=== PATIENT | male | born 1935 | race Caucasian/White ===

== ENCOUNTER → 2017-07-05 | Outpatient (REF) | payer MEDICARE, OTHER | LOC: M LAB REF 13:20 | PROVIDERS: ATTEND Internal Medicine Nephrology | DX: E78.2 Mixed hyperlipidemia (principal) ==

== ENCOUNTER → 2018-09-19 | Outpatient (REF) | payer MEDICARE, OTHER ==
[2018-09-19 13:57] LABS: CHOLESTEROL LEVEL 95 MG/DL (<200); HDL CHOLESTEROL 38 MG/DL (>40); LDL CHOLESTEROL 34 MG/DL (<100); NON-HDL-C 57 MG/DL; TRIGLYCERIDES LEVEL 116 MG/DL (<150)
== END ==
LOC: M LAB REF 13:09
DX: E78.2 Mixed hyperlipidemia (principal)
CPT/HCPCS: 80061

== ENCOUNTER → 2019-10-02 | Outpatient (REF) | payer MEDICARE, OTHER ==
[2019-10-02 14:03] LABS: CHOLESTEROL RISK RATIO 1.714 (<5)
== END ==
LOC: M LAB REF 12:53
PROVIDERS: ATTEND Internal Medicine Nephrology
DX: E78.2 Mixed hyperlipidemia (principal)

== ENCOUNTER → 2019-10-03 | Outpatient (REF) | payer MEDICARE, OTHER | LOC: M LAB REF 12:08 | PROVIDERS: ATTEND Internal Medicine Nephrology | DX: R19.7 Diarrhea, unspecified (principal) ==

== ENCOUNTER → 2020-06-14 | Outpatient (CLI) | payer MEDICARE, OTHER ==
[~2020-06-14] MED LIST: ALLO10TA PO; BACITAB PO; CARV25TA PO; E-Z-GAS II EFFERVESCENT PACKET (SODIUM BICARB./CITRIC ACID/SIMETHICONE) As Ordered ONE; E-Z-HD 98% w/w 340GM SUSP BTL As Ordered ONE; E-Z-PAQUE 96% w/w SUSP 176GM BTL As Ordered ONE; ECOT81TA5 PO; FAMO20TA PO; FERR325T82 PO; INDA125TA PO; LISI-538 PO; MAGN1CAP PO; MULT-90 PO; VITA-257 PO; VITA100T59 PO
--- NOTE | 2020-07-26 13:46 | REP ---
UPPER GI AIR CONTRAST AND SMALL BOWEL FOLLOW THROUGH: The procedure was performed under the direct supervision of Dr. Liriano. The images were reviewed with Dr. Liriano. FINDINGS: The clinical services manager film shows no organomegaly or pathological masses. The intestinal gas pattern is nonspecific. Liquid barium and gas-producing granules were given in the erect position as well as liquid barium in the prone oblique position in order to perform a double contrast upper GI examination. Additionally, liquid barium was given at the end of the examination in order to perform a small bowel follow through. The oral and pharyngeal stages of deglutition are unremarkable. Esophageal transport is prompt and efficient and there is no esophagitis, stricture, mucosal ring or hiatal hernia. There is gastroesophageal reflux demonstrated to the level of the kia. The stomach chambers are normally outlined. The rugal folds are smooth and regular. There is no gastritis, neoplasm or ulcer disease. The duodenal chambers are normally outlined. The mucosal folds are smooth and regular. There is no duodenitis, pancreatitis, peptic ulcer disease or neoplasm. There is a small duodenal tic in the distal portion of the duodenum. The visualized portion of the proximal small bowel appears normal in course and caliber. The barium column was followed through the small bowel to the level of the terminal ileum. Small bowel transit time is approximately 1 hour. During fluoroscopy, gentle palpation shows all loops are freely moveable and pliable. There are no fixed or angulated loops. The small bowel mucosal pattern is normal in course and caliber. There is no transition to suggest a partial small bowel obstruction. Spot filming of the terminal ileum shows a small ileal diverticulum. The terminal ileum is otherwise unremarkable. IMPRESSION: 1. There is gastroesophageal reflux demonstrated to the level of the kia. 2. There is a small distal duodenal diverticulum. 3. 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 2.4 minutes of fluoroscopy time was utilized for this procedure. [facility]
== END ==
LOC: M RAD 08:00
PROVIDERS: ATTEND Internal Medicine Gastroenterology
DX: K21.9 Gastro-esophageal reflux disease without esophagitis (principal); R19.7 Diarrhea, unspecified

== ENCOUNTER → 2020-06-21 | Outpatient (CLI) | payer MEDICARE, OTHER ==
[~2020-06-21] MED LIST changes: -E-Z-GAS II EFFERVESCENT PACKET (SODIUM BICARB./CITRIC ACID/SIMETHICONE) As Ordered ONE; -E-Z-HD 98% w/w 340GM SUSP BTL As Ordered ONE; -E-Z-PAQUE 96% w/w SUSP 176GM BTL As Ordered ONE; +LIQUID POLIBAR PLUS 105% w/v 1900ML BTL As Ordered ONE
--- NOTE | 2020-08-30 13:55 | REP ---
BARIUM ENEMA AIR CONTRAST The procedure was performed under the direct supervision of Dr. Corral. The images were reviewed with Dr. Corral. FINDINGS: The waist cutter film shows no organomegaly or pathological masses. The intestinal gas pattern is nonspecific. Liquid barium and air were instilled into the colon in a retrograde flow of the barium and air mixture. The exam is limited as the patient was unable to retain the contrast or the air. The colon is normal in position and contour. There is a 1 cm plaque-like flat polyp on the right side of the rectum. There is a 3 x 1.5 cm polypoid lesion in the rectal sigmoid colon. There are sigmoid diverticula identified. There is free flow of contrast to the cecum. There is reflux into the terminal ileum. IMPRESSION: * There is a 1 cm plaque-like/flat polyp on the right side of the rectum. * There is a 3 x 1.5 cm polypoid lesion in the rectosigmoid colon. * There is diverticulosis without evidence of diverticulitis. FLUOROSCOPY TIME: 1.3 minutes was utilized for this procedure. [facility]
== END ==
LOC: M RAD 07:15
PROVIDERS: ATTEND Internal Medicine Gastroenterology
DX: R19.7 Diarrhea, unspecified (principal); K63.5 Polyp of colon

== ENCOUNTER → 2020-07-11 | Outpatient (REF) | payer MEDICARE, OTHER ==
[~2020-07-11] MED LIST changes: -LIQUID POLIBAR PLUS 105% w/v 1900ML BTL As Ordered ONE
[2020-07-11 18:49] LABS: PERCENT SATURATION 20.2 % (19.7-50.0)
[2020-07-11 18:57] LABS: FOLATE 9.2 NG/ML
== END ==
LOC: M LAB REF 17:53
PROVIDERS: ATTEND Internal Medicine Nephrology
DX: D50.9 Iron deficiency anemia, unspecified (principal); D53.1 Other megaloblastic anemias, not elsewhere classified

== ENCOUNTER → 2020-08-23 | Outpatient (CLI) | payer MEDICARE, OTHER | LOC: M LABSMTC 13:33 | PROVIDERS: ATTEND Anesthesiology | DX: Z01.812 Encounter for preprocedural laboratory examination (principal); Z20.828 Contact with and (suspected) exposure to other viral communicable diseases | CPT/HCPCS: C9803; U0003 ==

== ENCOUNTER 2020-08-27 08:28 | Day surgery (SDC) | payer MEDICARE, OTHER ==
[~2020-08-27] VITALS: Ht 180.3 cm; Wt 68.0 kg
[~2020-08-27 08:28] MED LIST changes: +NS 1,000 ML IV ONE
[2020-08-27] MEDS ORDERED: LIDOCAINE 2% 100MG/5ML SDV (FOR ANES.) As Ordered ONE (09:55)
[2020-08-27] MEDS ORDERED: propofoL 200 MG/20 ML VIAL As Ordered ONE (09:55)
[2020-08-27] MEDS ORDERED: PHENYLephrine HCL 500 MCG/5 ML (100MCG/ML) SYRINGE (J2370) As Ordered ONE (10:38)
--- NOTE | 2020-08-27 11:03 | ROOR ---
Patient Name: Lamont Sarabia Procedure Date: 08/27/2020 10:18 AM Date of : 1935 Age: 84 Room: [facility] Gender: Male Note Status: Finalized Procedure: Colonoscopy Indications: Iron deficiency anemia, Abnormal barium enema Providers: Ankur Shaver MD Referring MD: Eladio Hung MD Requesting Provider: Medicines: Monitored Anesthesia Care Complications: No immediate complications. Procedure: Pre-Anesthesia Assessment: - Prior to the procedure, a History and Physical was performed, and patient medications and allergies were reviewed. The patient is competent. The risks and benefits of the procedure and the sedation options and risks were discussed with the patient. All questions were answered and informed consent was obtained. Patient identification and proposed procedure were verified by the physician, the nurse and the anesthesiologist in the procedure room. Mental Status Examination: alert and oriented. Airway Examination: normal oropharyngeal airway and neck mobility. Respiratory Examination: clear to auscultation. CV Examination: normal. Prophylactic Antibiotics: The patient does not require prophylactic antibiotics. Prior Anticoagulants: The patient has taken no previous anticoagulant or antiplatelet agents. ASA Grade Assessment: II - A patient with mild systemic disease. After reviewing the risks and benefits, the patient was deemed in satisfactory condition to undergo the procedure. The anesthesia plan was to use monitored anesthesia care (MAC). Immediately prior to administration of medications, the patient was re-assessed for adequacy to receive sedatives. The heart rate, respiratory rate, oxygen saturations, blood pressure, adequacy of pulmonary ventilation, and response to care were monitored throughout the procedure. The physical status of the patient was re-assessed after the procedure. The Colonoscope was introduced through the anus and advanced to the terminal ileum, with identification of the appendiceal orifice and IC valve. The colonoscopy was performed without difficulty. The patient tolerated the procedure well. The quality of the bowel preparation was good. The terminal ileum, ileocecal valve, appendiceal orifice, and rectum were photographed. Scope insertion time was 2 minutes. Scope withdrawal time was 9 minutes. The total duration of the procedure was 12 minutes. Findings: The perianal and digital rectal examinations were normal. The terminal ileum appeared normal. A single medium-sized localized angioectasia with stigmata of recent bleeding was found in the cecum. Coagulation for hemostasis using argon beam at 0.8 liters/minute and 20 rachel was successful. For hemostasis, one hemostatic clip was successfully placed. There was no bleeding at the end of the procedure. Multiple small and large-mouthed diverticula were found in the sigmoid colon. There was no evidence of diverticular bleeding. Non-bleeding external and internal hemorrhoids were found during retroflexion. The hemorrhoids were medium-sized. There is no endoscopic evidence of mass, polyps, stricture or ulcerations in the entire colon. Impression: - The examined portion of the ileum was normal. - A single recently bleeding colonic angioectasia. Treated with argon beam coagulation. Clip was placed. - Moderate diverticulosis in the sigmoid colon. There was no evidence of diverticular bleeding. - Non-bleeding external and internal hemorrhoids. - No specimens collected. Recommendation: - Patient has a contact number available for emergencies. The signs and symptoms of potential delayed complications were discussed with the patient. Return to normal activities tomorrow. Written discharge instructions were provided to the patient. - High fiber diet. - Continue present medications. - Await pathology results. - Repeat colonoscopy is not recommended due to current age (66 years or older) depending on clinical and functional status. - Telephone GI clinic if symptomatic. - Return to primary care physician. Ankur Shaver MD Ankur Shaver MD 08/27/2020 11:02:45 AM Electronically signed by Ankur Shaver MD Number of Addenda: 0 Note Initiated On: 08/27/2020 10:18 AM Estimated Blood Loss: Estimated blood loss was minimal.
[2020-08-27 11:27] VITALS: BP 131/63
== END 2020-08-27 11:32 | disposition home or self-care (01) ==
LOC: M OPP 08:28
PROVIDERS: ATTEND Internal Medicine Gastroenterology
DX: K55.21 Angiodysplasia of colon with hemorrhage (principal); D50.9 Iron deficiency anemia, unspecified; K57.30 Diverticulosis of large intestine without perforation or abscess without bleeding; K64.8 Other hemorrhoids; R93.3 Abnormal findings on diagnostic imaging of other parts of digestive tract; K21.9 Gastro-esophageal reflux disease without esophagitis; I10 Essential (primary) hypertension; R19.7 Diarrhea, unspecified; Z79.899 Other long term (current) drug therapy
CPT/HCPCS: 45382; J2370

== ENCOUNTER → 2020-10-01 | Outpatient (CLI) | payer MEDICARE, OTHER ==
[~2020-10-01] MED LIST changes: -NS 1,000 ML IV ONE
--- NOTE | 2020-10-01 09:32 | REP ---
INDICATION: GENERALIZED ABDOMIAL PAIN COMPARISON: None TECHNIQUE: Axial noncontrast images from the lung bases to the pubic symphysis with coronal and sagittal reformations. This CT examination was performed using the following dose reduction techniques: Automated exposure control, adjustment of mA and/or kv according to the patient's size, and use of iterative reconstruction technique. FINDINGS: There is a moderate to large left pleural effusion along with passive atelectasis at the lingula and left lower lobe. Severe ascites noted throughout the abdomen and pelvis. Liver appears mildly shrunken which may reflect cirrhosis. Spleen is grossly unremarkable and without splenomegaly. Pancreas, gallbladder, and bilateral adrenal glands appear normal. Kidneys demonstrate age-related symmetric atrophic changes, mild chronic perinephric stranding, and hypodensities likely representing simple and complex cysts. Renovascular calcifications are identified without evidence for hydroureteronephrosis or nephrolithiasis. The enteric system is incompletely evaluated due to surrounding ascites. However, there is no evidence for bowel obstruction or free air to suggest perforation. Extensive calcifications versus intraluminal barium concretions are noted within the central abdomen. Pelvis demonstrates normal bladder and prostatomegaly. Atherosclerotic changes to the aorta and vasculature noted without aortic aneurysm. Osseous structures demonstrate age-related osteopenia and degenerative changes without focal acute osseous abnormality. IMPRESSION: 1. Large left pleural effusion with lingular and left lower lobe passive atelectasis. 2. Severe ascites throughout the abdomen and pelvis. 3. Further nonacute abdominopelvic findings as described above. Further evaluation is somewhat limited due to ascites and lack of both intrinsic and IV/oral contrast. <Electronically signed by Naveen Valle > 10/01/20 [id number]
== END ==
LOC: M RAD 07:21
PROVIDERS: ATTEND Internal Medicine Nephrology
DX: R10.84 Generalized abdominal pain (principal); R19.7 Diarrhea, unspecified; J90 Pleural effusion, not elsewhere classified; R18.8 Other ascites

== ENCOUNTER → 2020-10-28 | Outpatient (REF) | payer MEDICARE, OTHER ==
[2020-10-28 12:14] LABS: INR 1.08; PROTHROMBIN TIME 14.2 SECONDS (12.5-14.3)
[2020-10-28 12:15] LABS: PARTIAL THROMBOPLASTIN TIME 34.9 SECONDS (24.2-38.5)
== END ==
LOC: M LABDRAWC 11:06
PROVIDERS: ATTEND Internal Medicine Nephrology
DX: N18.4 Chronic kidney disease, stage 4 (severe) (principal); K74.69 Other cirrhosis of liver

== ENCOUNTER → 2020-10-29 | Outpatient (CLI) | payer MEDICARE, OTHER ==
[~2020-10-29] MED LIST changes: +SODIUM BICARBONATE 8.4% INJ 50MEQ 50 ML VIAL As Ordered ONE
[2020-10-29 14:02] VITALS: BP 126/58
[2020-10-29 14:10] LABS: APPEARANCE, BODY FLUID CLOUDY (CLEAR); SOURCE, BODY FLUID ASCITES
[2020-10-29 14:25] LABS: SOURCE, BODY FLUID TOT PROTEIN ASCITES; TOTAL PROTEIN, BODY FLUID 2.7 G/DL (NOT ESTABLISHED)
--- NOTE | 2020-10-29 16:52 | REP ---
INDICATION: SEVERE ASCITES The patient has a history of ascites COMPARISON: None. TECHNIQUE: The procedure was performed by DAVID Padilla, under the direct supervision of Dr. Corral The risks and benefits of the procedure were explained to the patient and an informed consent was obtained both verbally and written. Directly prior to the start of the procedure a formal time-out was completed in the procedure room. The largest pocket of fluid was localized in the right flank using ultrasound guidance. The skin was prepped and draped in a sterile fashion. Ten ML of buffered lidocaine was used as a local anesthetic. An 8-Bengali multi side-hole catheter was inserted using trocar technique. 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 The patient tolerated the procedure well and there were no immediate complications. After the appropriate amount of monitored convalescence, the patient was discharged from the department. 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 <Electronically signed by Mariel Medina > 10/29/20 1607 <Electronically signed by Edmar Corral > 10/29/20 [id number]
== END ==
LOC: M IRPRO 12:35
PROVIDERS: ATTEND Internal Medicine Nephrology
DX: R18.8 Other ascites (principal); Z79.82 Long term (current) use of aspirin; Z79.899 Other long term (current) drug therapy

== ENCOUNTER 2021-01-30 10:11 | Inpatient (IN) | payer MEDICARE, OTHER ==
[~2021-01-30] VITALS: Ht 180.3 cm; Wt 63.6 kg
[~2021-01-30 10:11] MED LIST changes: -LISI-538 PO; +LISI20TA33 PO; -SODIUM BICARBONATE 8.4% INJ 50MEQ 50 ML VIAL As Ordered ONE
[2021-01-30 11:35] LABS: BASO # 0.1 10^3/uL (0.0-0.2); BASO % 0.5 % (0.0-1.0); EOS # 0.1 10^3/uL (0.0-0.5); EOS % 0.5 % (0.0-3.0); HEMOGLOBIN 7.4 g/dl (13.5-17.5); LYMPH # 0.3 10^3/uL (1.5-5.0); LYMPH % 2.6 % (24.0-44.0); MEAN CORPUSCULAR HEMOGLOBIN 29.1 pg (27.0-33.0); MEAN CORPUSCULAR HGB CONC 32.2 g/dl (32.0-36.5); MEAN CORPUSCULAR VOLUME 90.6 fl (80.0-96.0); MONO # 1.2 10^3/uL (0.0-0.8); MONO % 11.4 % (2.0-8.0); NEUTROPHILS # 9.2 10^3/uL (1.5-8.5); NEUTROPHILS % 84.5 % (36.0-66.0); PLATELET COUNT, AUTOMATED 283 10^3/uL (150-450); RED BLOOD COUNT 2.54 10^6/uL (4.30-6.10); WHITE BLOOD COUNT 10.9 10^3/uL (4.0-10.0)
--- NOTE | 2021-01-30 11:51 | REP ---
INDICATION: Altered Mental Status. COMPARISON: None. TECHNIQUE: Helical scanning is acquired. 5 mm axial images were reformatted. Coronal MPR images were generated. FINDINGS: Preliminary digital didactic instructor radiograph is unremarkable. The bony calvarium is intact. There is moderate diffuse vascular calcification in the distal internal carotid arteries bilaterally. No intraorbital abnormality is seen. The visualized paranasal sinuses are clear. No bony calvarial lesion is seen. On soft tissue window settings, there is moderate generalized volume loss. Concordant ventricular enlargement is seen. There is no evidence of intracranial hemorrhage. No infarct is apparent. No mass, extra-axial fluid collection, or midline shift is seen. IMPRESSION: Moderate generalized volume loss. Vascular calcification. No acute intracranial abnormality. <Electronically signed by Slava Liriano > 01/30/21 [id number]
--- NOTE | 2021-01-30 11:53 | REP ---
INDICATION: Altered Mental Status. COMPARISON: No comparison chest x-ray. TECHNIQUE: Portable upright AP chest radiograph. FINDINGS: There is evidence of left pleural effusion. There is some volume loss overall overall in the left hemithorax suggesting some atelectatic change in the left lower lobe. Skin folds are seen parallel to the chest. These mimic pneumothorax. Concurrently performed chest CT study from this date does not show evidence of a pneumothorax. The right lung is clear. Heart is not enlarged. No bony abnormality is seen.. IMPRESSION: Evidence of left pleural effusion with atelectasis left lung. Skin folds along the left chest wall mimic pneumothorax.. <Electronically signed by Slava Liriano > 01/30/21 [id number]
--- NOTE | 2021-01-30 11:53 | REP ---
INDICATION: Altered Mental Status. COMPARISON: None. TECHNIQUE: CT chest performed without the use of intravenous contrast. Sagittal and coronal reconstruction images are performed. FINDINGS: Lungs: Right lung clear, no infiltrate or nodule. Left lung demonstrates mild dependent atelectatic change. Mediastinum: No gross adenopathy. Lesly: No gross adenopathy. Axilla: No gross adenopathy. Pleura: There is a large left pleural effusion.. Heart: Not enlarged. Small amount of pericardial fluid is seen anteriorly and inferiorly. Thoracic aorta: No aneurysm. Visualized osseous structures: There are mild degenerative changes of the spine. IMPRESSION: Large left pleural effusion with dependent atelectatic changes left lung. Small amount of pericardial fluid anteriorly and inferiorly. <Electronically signed by Edmar Corral > 01/30/21 [id number]
[2021-01-30 12:05] LABS: OSMOLALITY SERUM 278 MOSM/KG (280-301)
[2021-01-30 12:14] LABS: ALBUMIN 2.1 GM/DL (3.2-5.2); ALT/SGPT 10 U/L (12-78); BILIRUBIN,DIRECT 0.1 MG/DL (0.0-0.2); BILIRUBIN,TOTAL 0.4 MG/DL (0.2-1.0); BLOOD UREA NITROGEN 42 MG/DL (7-18); CALCIUM LEVEL 8.2 MG/DL (8.8-10.2); CARBON DIOXIDE LEVEL 26 MEQ/L (21-32); CHLORIDE LEVEL 95 MEQ/L (98-107); CK-MB VALUE MASS 8.1 NG/ML (<3.6); CPK CREATINE PHOSPHOKINASE 392 U/L (39-308); CREATININE FOR GFR 1.85 MG/DL (0.70-1.30); GLOMERULAR FILTRATION RATE 37.1 (>35); GLUCOSE, FASTING 68 MG/DL (70-100); MB/CK RELATIVE INDEX 2.07 (< OR =4); POTASSIUM SERUM 4.7 MEQ/L (3.5-5.1); SODIUM LEVEL 126 MEQ/L (136-145); TOTAL PROTEIN 6.7 GM/DL (6.4-8.2); TROPONIN I < 0.02 NG/ML (< 0.10)
--- NOTE | 2021-01-30 12:42 | REP ---
INDICATION: Altered Mental Status. COMPARISON: Abdomen/pelvis CT dated 10/01/2020. TECHNIQUE: The study is performed without IV or bowel contrast. FINDINGS: Within the visualized lower lung mendoza there is a large left pleural effusion. This is similar to the comparison study. There is a large volume of ascites throughout the abdomen and pelvis, similar to the prior study. The hepatic margin appears mildly nodular suggestive of cirrhosis. This should be correlated clinically. The liver appears to be diffusely decreased in size. This is unchanged. The gallbladder and pancreas are unchanged. Spleen appears normal size and unchanged. The adrenals are unremarkable. The unenhanced kidneys demonstrate no hydronephrosis or calculus. There are a few renal cortical cysts bilaterally. These are not significantly changed. There is mild bilateral perinephric stranding, not unusual for patient age. The abdominal aorta is unremarkable except for calcified atheroma occasional. There are a few nonenlarged periaortic nodes. There is no bowel distention or obstruction. There are numerous mesenteric calcifications a similar to the prior study. This may be sequela of prior mesenteric inflammation. Pelvis: Large volume of ascites throughout the pelvis. The pelvic bowel loops are unremarkable. The bladder is unremarkable. And IMPRESSION: Large volume ascites throughout the abdomen and pelvis as previously. Stable a mesenteric calcifications as previously, possibly from previous mesenteric inflammation. The liver is small size and the margin is mildly nodular compatible with cirrhosis. Large left pleural effusion. No bowel distention or obstruction. No hydronephrosis or renal calculus. There are a few small renal cysts, unchanged. <Electronically signed by Edmar Alba > 01/30/21 [id number]
[2021-01-30] MEDS ORDERED: ASCO500T PO (12:51)
[2021-01-30] MEDS ORDERED: MAGN400T3 PO (12:51)
[2021-01-30] MEDS ORDERED: FURO20TA2 PO (12:51)
[2021-01-30] MEDS ORDERED: FIBE625T PO (12:51)
[2021-01-30] MEDS ORDERED: PRES10CA2 PO (12:51)
[2021-01-30] MEDS ORDERED: FERR32TA PO (12:51)
[2021-01-30 14:56] LABS: SPEC. GRAVITY BODY FLUIDS 1.022 (NOT ESTABLISHED)
[2021-01-30 15:01] LABS: APPEARANCE, BODY FLUID CLOUDY (CLEAR); PERITONEAL FL COLOR PALE YELLOW (COLORLESS); SOURCE, BODY FLUID PERITONEAL
[2021-01-30 15:21] LABS: SOURCE, BODY FLUID ALBUMIN PERITONEAL; SOURCE, BODY FLUID GLUCOSE PERITONEAL; SOURCE, BODY FLUID TOT PROTEIN PERITONEAL; TOTAL PROTEIN, BODY FLUID 3.2 G/DL (NOT ESTABLISHED)
[2021-01-30 15:25] LABS: FERRITIN 516 NG/ML (26-388); IRON (FE) 17 UG/DL (65-175); PERCENT SATURATION 13.5 % (19.7-50.0); TOTAL IRON BINDING CAPACITY 126 UG/DL (250-450)
[2021-01-30 15:40] LABS: RSV AMPLIFICATION NEGATIVE (NEGATIVE)
[2021-01-30 15:45] VITALS: BP 119/59
[2021-01-30] MEDS ORDERED: GLUCOSE 4GM CHEW TABLET PO PRN (17:35)
[2021-01-30] MEDS ORDERED: GLUCAGON INJ 1MG VIAL SC PRN (17:35)
[2021-01-30] MEDS ORDERED: DEXTROSE 50% 50 ML SYRINGE IV PRN (17:35)
[2021-01-30 18:13] LABS: CREATININE,RANDOM URINE 54.7 MG/DL
[2021-01-30 18:18] LABS: INR 1.18; PROTHROMBIN TIME 15.3 SECONDS (12.5-14.3)
[2021-01-30 18:19] LABS: PARTIAL THROMBOPLASTIN TIME 33.4 SECONDS (24.2-38.5)
[2021-01-30 18:23] LABS: CALCIUM LEVEL 8.1 MG/DL (8.8-10.2); CREATININE FOR GFR 1.88 MG/DL (0.70-1.30); GLOMERULAR FILTRATION RATE 36.4 (>35); POTASSIUM SERUM 4.6 MEQ/L (3.5-5.1)
[2021-01-30] MEDS: D5W/0.45% SODIUM CHLORIDE 1,000 ML IV SCH (18:45)
--- NOTE | 2021-01-30 18:53 | REP ---
INDICATION: Paracentesis - diagnostic and therapeutic. COMPARISON: None. TECHNIQUE: The procedure was performed under the direct supervision of Dr. Corral. The risks and benefits of the procedure were explained to the patient and informed consent was obtained. The procedure was performed by Dr. Palma under my personal guidance. The largest pocket of fluid was localized in the left flank using ultrasound guidance. The skin was prepped and draped in a sterile fashion. 1% lidocaine was used as a local anesthetic. An 8-Ghanaian multi side-hole catheter was inserted using trocar technique.6250 cc of cloudy yellow fluid was withdrawn with a sample sent to the lab for analysis The patient tolerated the procedure well and there were no immediate complications. After the appropriate amount of monitored convalescence, the patient was discharged from the department. FINDINGS: None IMPRESSION: Ultrasound-guided paracentesis [id number] cc of cloudy fluid. <Electronically signed by Richy Baez > 01/30/21 [id number] <Electronically signed by Edmar Corral > 01/30/21 [id number]
[2021-01-30 19:43] LABS: HEMATOCRIT 26.3 % (42.0-52.0); HEMOGLOBIN 8.5 g/dl (13.5-17.5); MEAN CORPUSCULAR HEMOGLOBIN 28.7 pg (27.0-33.0); MEAN CORPUSCULAR HGB CONC 32.3 g/dl (32.0-36.5); MEAN CORPUSCULAR VOLUME 88.9 fl (80.0-96.0); PLATELET COUNT, AUTOMATED 257 10^3/uL (150-450); RED BLOOD COUNT 2.96 10^6/uL (4.30-6.10); WHITE BLOOD COUNT 11.2 10^3/uL (4.0-10.0)
--- NOTE | 2021-01-30 20:27 | HPEPDOC ---
General Date of Admission Jan 30, 2021 at 16:50 Date of Service: Jan 30, 2021 Chief Complaint The patient is a 85-year-old male admitted with a reason for visit of poor oral intake and weakness Source: Patient, Family History of Present Illness Mr. Sarabia is an 85 year old male with cirrhosis and CKD stage 4 who presents with weakness. The past few weeks, patient has had a poor appetite, but has acutely worsened in the past few days. reports that he would eat cornflakes and fruit for breakfast, but would not eat anything else for the rest of the day. Due to his poor oral intake, he also has had increased weakness. Yesterday, he was walking with the cane, and tripped. He denies lightheadedness/dizziness, chest pain, or dyspnea. Denies hematemesis, hematochezia, melena, or hematuria. His last bowel movement was 2 days ago. He fell and could not stand up. He was lifted up into a chair that evening. The next day, he still couldn't get up from the chair and was brought into the ED. In the ED, he was noted to have ascites and large left pleural effusion. He was sent for paracentesis where they drained 6.25L. He felt that his breathing improved after the paracentesis. Otherwise, work up was significant for anemia of 7.4 which may have contributed to his weakness. He is also very pale. Patient consented to blood products and being transfused with 1u pRBC. Patient will be admitted for symptomatic anemia, hyponatremia, and failure to thrive. Home Medications Scheduled Allopurinol (Allopurinol) 100 Mg Tablet, 100 MG PO QHS, (Reported) Ascorbic Acid (Ascorbic Acid) 500 Mg Tablet, 500 MG PO DAILY, (Reported) TAKES AT NOON Aspirin (Ecotrin) 81 Mg Tablet.dr, 81 MG PO DAILY, (Reported) Calcium Polycarbophil (Fibercon) 625 Mg Tablet, 1,250 MG PO DAILY, (Reported) Carvedilol (Carvedilol) 25 Mg Tablet, 12.5 MG PO BID, (Reported) Famotidine (Famotidine) 20 Mg Tablet, 20 MG PO BID, (Reported) TAKES AT NOON/HS Ferrous Gluconate (Ferrous Gluconate) 324 Mg Tablet, 324 MG PO DAILY, (Reported) TAKES AT NOON Furosemide (Furosemide) 20 Mg Tablet, 20 MG PO BID, (Reported) TAKES AM/NOON L.acidoph/L.bulg/B.bif/S.therm (Bacid Caplet) 1 Each Tablet, 1 TAB PO DAILY, (Reported) Magnesium Oxide (Magnesium Oxide) 400 Mg Tablet, 400 MG PO DAILY, (Reported) Vit C/E/Zn/Coppr/Lutein/Zeaxan (Preservision Areds 2 Softgel) 1 Each Capsule, 1 EACH PO BID, (Reported) TAKES AM/NOON Vitamin E (Dl,Tocopheryl Acet) (Vitamin E) 400 Unit Capsule, 400 UNIT PO DAILY, (Reported) TAKES AT NOON Allergies Coded Allergies: No Known Allergies (Unverified , 08/26/20) Past Medical History Medical History 1. Gout 2. Hypercholesterolemia 3. Hypertension 4. CKD stage 4 5. CAD 6. Anemia of chronic disease 7. Macular degenration 8. BPH 9. Diverticulosis 10. Hyperparathyroidism Surgical History 1. Cataract removal Family History Father: due to emphysema, history of diabetes Mother: due to natural causes. Denies knowing mother's PMH Social History * Smoker: former Smoker Alcohol: Denies Drugs: denies A-FIB/CHADSVASC A-FIB History Current/History of A-Fib/PAF?: No Review of Systems Constitutional: Reports: Weakness, Fatigue; Denies: Chills, Fever Eyes: Reports: Other (Has progressively worsening blurry vision) ENT: Denies: Sore Throat Skin: Reports: Rash (Reports a rash on his bottom) Pulmonary: Reports: Dyspnea (prior to paracentesis. Now resolved after pa racentesis) Cardiovascular: Reports: Lt Headedness; Denies: Chest Pain Gastrointestinal: Reports: Abdominal Pain (intermittent, no present), Constipation (Last BM 2 days ago); Denies: Diarrhea Genitourinary: Denies: Dysuria Hematologic: Reports: Bruising (On arms from falls) Neurological: Reports: Weakness; Denies: Numbness Psych: Denies: Anxiety, Depression Physical Examination General Exam: Positive: Cooperative Eye Exam: Positive: EOMI ENT Exam: Positive: Tongue Midline Neck Exam: Positive: Supple; Negative: JVD Chest Exam: Positive: Diminished Heart Exam: Positive: Rate Normal, Regular Rhythm Abdomen Exam: Positive: Normal bowel sounds, Soft, Tenderness (mild tenderness upper abdomen) Extremity Exam: Negative: Edema Neuro Exam: Positive: Cranial Nerves 3-12 NL Psych Exam: Positive: Mental status NL, Mood NL Vital Signs Vital Signs Date Time Temp Pulse Resp B/P (MAP) Pulse Ox O2 Delivery O2 Flow Rate FiO2 01/30/21 19:00 82 106/58 (74) 99 01/30/21 18:00 97.6 01/30/21 17:00 18 Room Air Laboratory Data Labs 24H Laboratory Tests 2 01/30/21 11:16: Immature Granulocyte % (Auto) 0.5, Neutrophils (%) (Auto) 84.5H, Lymphocytes (%) (Auto) 2.6L, Monocytes (%) (Auto) 11.4H, Eosinophils (%) (Auto) 0.5, Basophils (%) (Auto) 0.5, Neutrophils # (Auto) 9.2H, Lymphocytes # (Auto) 0.3L, Monocytes # (Auto) 1.2H, Eosinophils # (Auto) 0.1, Basophils # (Auto) 0.1, Reticulocyte # (auto) 36.6, Nucleated Red Blood Cells % (auto) 0.0, Percent Reticulocyte Count 1.5, Reticulocyte Hemoglobin Equivalent 33.7, Urine Color YELLOW, Urine Appearance CLEAR, Urine pH 5.0, Urine Specific [place] 1.009, Urine Protein NEGATIVE, Urine Glucose (UA) NEGATIVE, Urine Ketones NEGATIVE, Urine Blood NEGATIVE, Urine Nitrite NEGATIVE, Urine Bilirubin NEGATIVE, Urine Urobilinogen 0.2, Urine Leukocyte Esterase 1+H, Urine WBC (Auto) 14H, Urine RBC (Auto) 3, Urine Hyaline Casts (Auto) 1, Urine Bacteria (Auto) 1+H, Urine Squamous Epithelial Cells 0, Urine Sperm (Auto) , Urine Osmolality 359, Urine Random Creatinine 54.7, Urine Random Sodium 45, Urine Random Chloride 73, Urine Random Urea Nitrogen 457, Anion Gap 5L, Glomerular Filtration Rate 37.1, Osmolality 278L, Lactic Acid Level 1.3, Calcium Level 8.2L, Iron Level 17L, Total Iron Binding Capacity 126L, Transferrin % Saturation 13.5L, Ferritin 516H, Total Bili mckeon 0.4, Direct Bilirubin 0.1, Aspartate Amino Transf (AST/SGOT) 22, Alanine Aminotransferase (ALT/SGPT) 10L, Alkaline Phosphatase 43L, Ammonia 16, Total Creatine Kinase 392H, Creatine Kinase MB 8.1H, Creatine Kinase MB Relative Index 2.07, Troponin I < 0.02, Total Protein 6.7, Albumin 2.1L, Albumin/Globulin Ratio 0.5, Thyroid Stimulating Hormone (TSH) 3.060 01/30/21 13:30: Body Fluid Specific [place] 1.022, Body Fluid WBC (Auto) 168H, Body Fluid RBC (Auto) < 2, Body Fluid Mononuclear Cells % Auto 80.9H, Fluid Polymorphonuclear Cell % Auto 19.1H, Body Fluid Glucose Source PERITONEAL, Body Fluid Glucose 94, Body Fluid Protein Source PERITONEAL, Body Fluid Total Protein 3.2, Body Fluid Albumin Source PERITONEAL, Body Fluid Albumin 1.1, Peritoneal Fluid Source PERITONEAL, Peritoneal Fluid Color PALE YELLOW, Peritoneal Fluid Appearance CLOUDY 01/30/21 14:50: Coronavirus (COVID-19)(PCR) NEGATIVE, Influenza Type A (RT-PCR) NEGATIVE, Influenza Type B (RT-PCR) NEGATIVE, Respiratory Syncytial Virus (PCR) NEGATIVE 01/30/21 17:50: Anion Gap 6L, Glomerular Filtration Rate 36.4, Calcium Level 8.1L, Prothrombin Time 15.3H, Prothromb Time International Ratio 1.18, Activated Partial Thromboplast Time 33.4 CBC/BMP Laboratory Tests 01/30/21 11:16 01/30/21 17:50 Microbiology Microbiology 01/30/21 Fungal Smear, Received Pending 01/30/21 Fungal Culture, Received Pending 01/30/21 Anaerobic Culture, Received Pending 01/30/21 Gram Stain - Final, Resulted 01/30/21 Body Fluid Culture, Resulted Pending 01/30/21 Blood Culture, Received Pending 01/30/21 Urine Culture, Received Pending 01/30/21 Blood Culture, Received Pending Assessment/Plan Mr. Sarabia is an 85 year old male with cirrhosis and CKD stage 4 who presents with weakness and found to have symptomatic anemia, hyponatremia, and failure to thrive. Unlikely GI bleed due to lack of BM and negative guaiac performed by ED. Will confirm with occult stool. Otherwise, will monitor H&H. Otherwise, despite having ascites and cirrhosis, he does not have JVD. He has been having poor oral intake and his hyponatremia may be from poor oral intake. Will start on D5W/NS 0.45. Plan / VTE VTE Prophylaxis Ordered?: Yes Plan Plan 1. Symptomatic anemia -Pale and weak -Hemoglobin on admission low at 7.4 -Guaiac by ED negative. Will double check with Hemoccult stool. Unlikely to be GI bleed due to no BM for 2 days -Possible underproduction -Transfuse 1u pRBC and monitor 2. Hyponatremia -Close to isotonic hyponatremia, suspecting from poor oral intake and depletion -Will give D5W/NS 0.45 -Monitor BMP to prevent overcorrection 3. Hypoglycemia -On admission, glucose was 68 -From poor oral intake -Fluids include dextrose, monitor blood glucose 4. Ascites -Suspecting to be secondary to cirrhosis -[facility] boarderline at 1 (<1.1) -S/P paracentesis on 01/30/2021. PMN <250 -Removed 6.25L -Will give albumin 5. Large left pleural effusion -Stable at room air -Considering diagnostic thoracentesis tomorrow. Will send for cytology -Order for echocardiogram tomorrow 6. CKD stage 4 -Creatinine in 10/2020 was 1.7 -Creatinine close to baseline -Monitor 7. Gout -Continue with allopurinol 8. Poor oral intake -May be secondary to ascites -Monitor for clinical improvement -Famotidine and PPI 9. Constipation -Add on colace 10. Hypertension -Due to acute anemia and poor oral intake. Will hold carvedilol and furosemide 11. DVT ppx -Due to anemia, SCD and TEDs GILDARDO FITZPATRICK DO Jan 30, 2021 20:27
[2021-01-30 20:30] VITALS: BP 120/58
[2021-01-30] MEDS ORDERED: PANTOPRAZOLE 40MG VIAL (C9113 PER 1) IV SCH (21:00)
[2021-01-30 21:17] LABS: CREATININE FOR GFR 1.88 MG/DL (0.70-1.30); GLOMERULAR FILTRATION RATE 36.4 (>35); POTASSIUM SERUM 4.5 MEQ/L (3.5-5.1)
[2021-01-30] MEDS: FAMOTIDINE 20 MG TAB PO SCH (22:02)
[2021-01-30] MEDS: DOCUSATE SODIUM 100MG CAPSULE PO SCH (22:02)
[2021-01-30] MEDS: allopurinoL 100 MG TAB PO SCH (22:02)
[2021-01-30 22:04] VITALS: BP 111/56
[2021-01-30 23:00] VITALS: BP 106/65
[2021-01-31] VITALS (11 sets, daily range): BP systolic 94–126; BP diastolic 53–63
[2021-01-31 01:33] LABS: CALCIUM LEVEL 8.1 MG/DL (8.8-10.2); CREATININE FOR GFR 1.82 MG/DL (0.70-1.30); GLOMERULAR FILTRATION RATE 37.8 (>35); POTASSIUM SERUM 4.3 MEQ/L (3.5-5.1)
--- NOTE | 2021-01-31 01:47 | ECGEPIP ---
[facility] - ED Test Date: 2021-01-30 Pat Name: DONALDO DEL ROSARIO Department: Room: - Gender: Male Shirt Bander: Jennifer LEDESMA : 1935 Requested By: CELESTINA Kenyon Order Number: [id number] Reading MD: Avery Donovan Measurements Intervals [place] Rate: 85 P: 76 OH: 196 QRS: -8 QRSD: 82 T: 65 QT: 382 QTc: 454 Interpretive Statements Sinus rhythm with premature atrial complexes and premature ventricular complexes or fusion complexes Low voltage QRS INCOMPLETE RIGHT BUNDLE BRANCH BLOCK Nonspecific ST and T wave abnormality BASELINE ARTIFACT AFFECTS INTERPRETATION NO PRIORS FOR COMPARISON Electronically Signed on 01-31-2021 1:46:59 EDT by Avery Donovan
[2021-01-31 02:58] LABS: MAGNESIUM LEVEL 2.2 MG/DL (1.8-2.4)
[2021-01-31 05:27] LABS: HEMATOCRIT 24.4 % (42.0-52.0); MEAN CORPUSCULAR HEMOGLOBIN 28.8 pg (27.0-33.0); MEAN CORPUSCULAR HGB CONC 32.8 g/dl (32.0-36.5); MEAN CORPUSCULAR VOLUME 87.8 fl (80.0-96.0); PLATELET COUNT, AUTOMATED 253 10^3/uL (150-450); RED BLOOD COUNT 2.78 10^6/uL (4.30-6.10); WHITE BLOOD COUNT 11.1 10^3/uL (4.0-10.0)
[2021-01-31 05:49] LABS: CALCIUM LEVEL 7.7 MG/DL (8.8-10.2); CREATININE FOR GFR 1.7 MG/DL (0.70-1.30); GLOMERULAR FILTRATION RATE 40.9 (>35); POTASSIUM SERUM 4.4 MEQ/L (3.5-5.1)
[2021-01-31] MEDS ORDERED: FLUBLOK(EGG FREE)(QUAD)INFLUENZA VACC 0.5ML SYRINGE 18YRS & OLDER IM ONE (09:00)
[2021-01-31] MEDS: DOCUSATE SODIUM 100MG CAPSULE PO SCH ×2 (09:55→20:15)
[2021-01-31] MEDS: D5W/0.45% SODIUM CHLORIDE 1,000 ML IV SCH (09:55)
--- NOTE | 2021-01-31 12:06 | IPNPDOC ---
Subjective Date Seen The patient was seen on 01/31/21. Subjective Chief Complaint/HPI Mr. Sarabia is an 85 year old male with cirrhosis and CKD stage 4 who presents with weakness and found to have poor oral intake, symptomatic anemia, and hyponatremia. This morning, he denies any chest pain or dyspnea. He tolerated a clear liquid diet, will try regular diet for lunch. Objective Physical Examination General Exam: Positive: Cooperative Eye Exam: Positive: EOMI ENT Exam: Positive: Tongue Midline Neck Exam: Positive: Supple; Negative: JVD Chest Exam: Positive: Diminished Heart Exam: Positive: Rate Normal, Regular Rhythm Abdomen Exam: Positive: Normal bowel sounds, Soft, Tenderness (mild tenderness upper abdomen) Extremity Exam: Negative: Edema Neuro Exam: Positive: Cranial Nerves 3-12 NL Psych Exam: Positive: Mental status NL, Mood NL Assessment /Plan Assessment Mr. Sarabia is an 85 year old male with cirrhosis and CKD stage 4 who presents with weakness and found to have symptomatic anemia, hyponatremia, and failure to thrive. Unlikely GI bleed due to lack of BM and negative guaiac performed by ED. Will confirm with occult stool. Otherwise, will monitor H&H. Otherwise, despite having ascites and cirrhosis, he does not have JVD. He has been having poor oral intake and his hyponatremia may be from poor oral intake. Plan/VTE VTE Prophylaxis Ordered?: Yes Plan 1. Symptomatic anemia -Pale and weak -Hemoglobin on admission low at 7.4 -Guaiac by ED negative. Will double check with Hemoccult stool. Unlikely to be GI bleed due to no BM for 2 days -Possible underproduction -Transfuse 1u pRBC and monitor 2. Hyponatremia -Close to isotonic hyponatremia, suspecting from poor oral intake and depletion -Continue D5W/NS 0.45 -Monitor BMP to prevent overcorrection 3. Hypoglycemia -On admission, glucose was 68 -From poor oral intake -Fluids include dextrose, monitor blood glucose -Improved 4. Ascites -Suspecting to be secondary to cirrhosis -[facility] boarderline at 1 (<1.1) -S/P paracentesis on 01/30/2021. PMN <250 -Removed 6.25L -Will give albumin 5. Large left pleural effusion -Stable at room air -Pending echocardiogram -Since out of stock for albumin and patient is stable, hold off on thoracentesis 6. CKD stage 4 -Creatinine in 10/2020 was 1.7 -Creatinine close to baseline -Monitor 7. Gout -Continue with allopurinol 8. Poor oral intake -May be secondary to ascites -Monitor for clinical improvement -Famotidine 9. Constipation -Add on colace 10. Hypertension -Due to acute anemia and poor oral intake. Will hold carvedilol and furosemide 11. DVT ppx -Due to anemia, SCD and TEDs Disposition: Pending improvement in anemia, appetite, and hyponatremia. Pending PT evaluation VS, I&O, 24H, Fishbone Vital Signs/I&O Vital Signs Date Time Temp Pulse Resp B/P (MAP) Pulse Ox O2 Delivery O2 Flow Rate FiO2 01/31/21 08:00 98.1 67 16 107/53 (71) 96 Room Air I&O- Last 24 Hours up to 6 AM 01/31/21 06:00 Intake Total 650.0 ml Output Total 525 ml Balance 125.0 ml Laboratory Data 24H LABS Laboratory Tests 2 01/30/21 13:30: Body Fluid Specific [place] 1.022, Body Fluid WBC (Auto) 168H, Body Fluid RBC (Auto) < 2, Body Fluid Mononuclear Cells % Auto 80.9H, Fluid Polymorphonuclear Cell % Auto 19.1H, Body Fluid Glucose Source PERITONEAL, Body Fluid Glucose 94, Body Fluid Protein Source PERITONEAL, Body Fluid Total Protein 3.2, Body Fluid Albumin Source PERITONEAL, Body Fluid Albumin 1.1, Peritoneal Fluid Source PERITONEAL, Peritoneal Fluid Color PALE YELLOW, Peritoneal Fluid Appearance CLOUDY 01/30/21 14:50: Coronavirus (COVID-19)(PCR) NEGATIVE, Influenza Type A (RT-PCR) NEGATIVE, Influenza Type B (RT-PCR) NEGATIVE, Respiratory Syncytial Virus (PCR) NEGATIVE 01/30/21 17:50: Prothrombin Time 15.3H, Prothromb Time International Ratio 1.18, Activated Partial Thromboplast Time 33.4, Anion Gap 6L, Glomerular Filtration Rate 36.4, Calcium Level 8.1L 01/30/21 19:31: Nucleated Red Blood Cells % (auto) 0.0 01/30/21 20:41: Anion Gap 6L, Glomerular Filtration Rate 36.4, Calcium Level 8.0L 01/31/21 00:19: Bedside Glucose (Misc Panel) 92 01/31/21 00:51: Anion Gap 5L, Glomerular Filtration Rate 37.8, Calcium Level 8.1L, Magnesium Level 2.2 01/31/21 04:52: Anion Gap 6L, Glomerular Filtration Rate 40.9, Calcium Level 7.7L, Nucleated Red Blood Cells % (auto) 0.0 CBC/BMP Laboratory Tests 01/30/21 17:50 01/30/21 19:31 01/30/21 20:41 01/31/21 00:51 01/31/21 04:52 Microbiology Microbiology 01/30/21 Fungal Smear, Received Pending 01/30/21 Fungal Culture, Received Pending 01/30/21 Anaerobic Culture, Received Pending 01/30/21 Gram Stain - Final, Resulted 01/30/21 Body Fluid Culture, Resulted Pending 01/30/21 Blood Culture, Received Pending 01/30/21 Urine Culture, Received Pending 01/30/21 Blood Culture - Preliminary, Resulted No growth after 24 hours . All specim... GILDARDO FITZPATRICK 26, 2021 12:06
[2021-01-31] MEDS: FAMOTIDINE 20 MG TAB PO SCH ×2 (12:27→20:15)
[2021-01-31 13:10] LABS: CALCIUM LEVEL 7.6 MG/DL (8.8-10.2); CREATININE FOR GFR 1.61 MG/DL (0.70-1.30); GLOMERULAR FILTRATION RATE 43.5 (>35); POTASSIUM SERUM 4.2 MEQ/L (3.5-5.1)
[2021-01-31 18:26] LABS: HEMATOCRIT 24.8 % (42.0-52.0); MEAN CORPUSCULAR HEMOGLOBIN 28.4 pg (27.0-33.0); MEAN CORPUSCULAR HGB CONC 32.3 g/dl (32.0-36.5); MEAN CORPUSCULAR VOLUME 87.9 fl (80.0-96.0); PLATELET COUNT, AUTOMATED 244 10^3/uL (150-450); RED BLOOD COUNT 2.82 10^6/uL (4.30-6.10)
[2021-01-31 18:54] LABS: CALCIUM LEVEL 7.9 MG/DL (8.8-10.2); CREATININE FOR GFR 1.7 MG/DL (0.70-1.30); GLOMERULAR FILTRATION RATE 40.9 (>35); POTASSIUM SERUM 4.3 MEQ/L (3.5-5.1)
[2021-01-31] MEDS: allopurinoL 100 MG TAB PO SCH (20:15)
[2021-02-01] VITALS (7 sets, daily range): BP systolic 108–137; BP diastolic 57–68
[2021-02-01] MEDS: D5W/0.45% SODIUM CHLORIDE 1,000 ML IV SCH (02:12)
[2021-02-01 05:06] LABS: HEMATOCRIT 24.6 % (42.0-52.0); MEAN CORPUSCULAR HEMOGLOBIN 28.9 pg (27.0-33.0); MEAN CORPUSCULAR HGB CONC 32.5 g/dl (32.0-36.5); MEAN CORPUSCULAR VOLUME 88.8 fl (80.0-96.0); PLATELET COUNT, AUTOMATED 225 10^3/uL (150-450); RED BLOOD COUNT 2.77 10^6/uL (4.30-6.10); WHITE BLOOD COUNT 8.1 10^3/uL (4.0-10.0)
[2021-02-01 05:40] LABS: CALCIUM LEVEL 7.4 MG/DL (8.8-10.2); CREATININE FOR GFR 1.58 MG/DL (0.70-1.30); GLOMERULAR FILTRATION RATE 44.5 (>35); POTASSIUM SERUM 4.1 MEQ/L (3.5-5.1)
[2021-02-01] MEDS: cefTRIAXone SOD 1 GM in D5W MINI-BAG PLUS 50 ML IV SCH (08:08)
[2021-02-01] MEDS: LACTOBACILLUS ACIDOPHILUS CAP (BACID) PO SCH ×2 (08:08→17:40)
[2021-02-01] MEDS: DOCUSATE SODIUM 100MG CAPSULE PO SCH ×2 (08:08→21:00)
[2021-02-01] MEDS: FAMOTIDINE 20 MG TAB PO SCH ×2 (11:57→21:45)
--- NOTE | 2021-02-01 13:38 | CR ---
CONSULTATION DATE: 02/01/2021 CONSULTATION FOR: Fredi Kumar M.D. REASON FOR CONSULTATION: Acute on chronic kidney disease and severe anemia with weakness. HISTORY OF PRESENT ILLNESS: Mr. Sarabia is an 85-year-old gentleman with known history of alcohol cirrhosis and ascites. He also has a large left pleural effusion. He was admitted to [facility] due to weakness, as he fell at home 2 days prior to admission and could not get up. The next day he was still very weak and could not get up from his chair. He was brought to the emergency room, where he was found to have severe anemia and large amount of ascites and left pleural effusion. Patient had a paracentesis done, and 6.2 liters of fluid was removed. He became even more weak and has been admitted. He has been transfused due to severe anemia, which has improved, and is also receive intravenous (IV) fluid. Patient was hyponatremic on admission. A nephrology consultation was requested, and patient is seen this morning. MEDICAL AND SURGICAL HISTORY: Patient himself is a poor historian and not able to provide much information. Usually his provides the information, who is not available at this time. His chart was reviewed, and information was obtained. PAST MEDICAL HISTORY: Significant for: 1. Gout. 2. Hypertension. 3. Stage IV chronic kidney disease. 4. Anemia. 5. Alcohol cirrhosis with ascites. 6. Macular degeneration. 7. History of diverticulosis. 8. Benign prostatic hypertrophy. 9. Secondary hyperparathyroidism. 10. He also has anemia of chronic kidney disease, which was much worse on admission. PAST SURGICAL HISTORY: Significant for: 1. Cataract surgery. 2. Paracentesis. FAMILY HISTORY: Noncontributory in this elderly gentleman. PERSONAL AND SOCIAL HISTORY: Patient is a former smoker. He just recently stopped drinking. He has no history or drug use. REVIEW OF SYSTEMS: Patient is a poor historian. He is very [id number] and not able to provide much information. He has weakness and weight loss due to poor oral intake over last several months. He tripped and fell at home a couple of days prior to admission. Nose and throat are unremarkable. Cardiovascular system is significant for history of hypertension. There is no leg edema. Respiratory system is negative for cough or hemoptysis. Gastrointestinal (GI) system is significant for poor appetite and history of cirrhosis with ascites. Genitourinary () system is significant for BPH. There is no history of dysuria or hematuria. Musculoskeletal system significant for generalized weakness and difficulty getting up, even from a seated position. Endocrine system is significant for type 2 diabetes. Hematological system is significant for anemia. He is not on any long-term anticoagulation. Skin is negative for rash or ulcers. Neurological system is negative for seizures or stroke. PHYSICAL EXAMINATION: Pale-looking elderly gentleman lying in the bed without any acute distress. Temperature 97.4 degrees Fahrenheit, heart rate 64 per minute, respiratory rate 16 per minute, blood pressure 00782 mmHg, and oxygen saturation 96% on room air. His head is atraumatic. Neck supple and without jugular venous distention (JVD) or thyroid enlargement. Oral mucosa is dry and without any thrush or ulcer. Heart sounds are regular and lungs with diminished breath sounds on the left side. Abdomen distended with ascites and nontender. Bowel sounds are present. Extremities without any cyanosis or clubbing. There is no peripheral edema. Neurologically, he has no focal deficit. He is not fully oriented. Yesterday his sodium was 129 and today is 130. Potassium is 4.1, CO2 of 26, BUN 34, and creatinine 1.58. Glucose 94 and calcium 7.4. His hemoglobin is 8.0 and hematocrit 24.6. WBC count 8.1 and platelets 225. Ascites fluid analysis showed WBC count 168 with 81% neutrophils. Urinalysis was unremarkable. CT scan of abdomen and pelvis was consistent with ascites and cirrhosis. Chest CT scan was consistent with a large left pleural effusion and atelectasis. PROBLEMS: 1. Acute kidney injury superimposed on chronic kidney disease. His creatinine was 1.8 on admission, which was probably related to dehydration. Today creatinine is down to 1.58. His oral intake is still poor. I am going to stop his intravenous (IV) fluid due to this causing increase in the ascites. I will recommend oral intake. 2. Hyponatremia. Essentially no change. His hyponatremia is related to poor oral intake and hepatic insufficiency. At this point, we will monitor him closely and see how he does. He has been receiving IV half-normal saline, which could also contribute to hyponatremia. His half-normal saline is being stopped. 3. Symptomatic anemia, most likely multifactorial. No active bleeding reported, and fluid was tested negative. He has been transfused only 1 unit. I will recommend to transfuse another unit of packed red blood cells (RBCs). 4. Malnutrition. This is a chronic issue, and patient has not been eating much. Probably related to dementia and multi-organ problems. His long-term prognosis remains poor. I feel that patient can probably be offered some nutritional supplements. 5. Symptomatic anemia. Patient has been transfused 1 unit of packed RBC. He is likely to benefit from another unit of packed RBC. 6. Large left pleural effusion. Chronic issue related to decreased serum protein level. He is not a suitable candidate for diuretic due to intravascular volume depletion risk. I will recommend to get a thoracentesis done. Thank you for involving me in the care of Mr. Sarabia. I will follow him along with you.
--- NOTE | 2021-02-01 18:31 | IPNPDOC ---
Subjective Date Seen The patient was seen on 02/01/21. Subjective Chief Complaint/HPI Mr. Sarabia is an 85 year old male with cirrhosis and CKD stage 4 who presents with weakness and found to have poor oral intake, symptomatic anemia, and hyponatremia. He was seen this morning. He is eating more, but not enough. Otherwise, denies chest pain or dyspnea. Objective Physical Examination General Exam: Positive: Cooperative Eye Exam: Positive: EOMI ENT Exam: Positive: Tongue Midline Neck Exam: Positive: Supple; Negative: JVD Chest Exam: Positive: Diminished Heart Exam: Positive: Rate Normal, Regular Rhythm Abdomen Exam: Positive: Normal bowel sounds, Soft, Tenderness (mild tenderness upper abdomen) Extremity Exam: Negative: Edema Neuro Exam: Positive: Cranial Nerves 3-12 NL Psych Exam: Positive: Mental status NL, Mood NL Assessment /Plan Assessment Mr. Sarabia is an 85 year old male with cirrhosis and CKD stage 4 who presents with weakness and found to have symptomatic anemia, hyponatremia, and failure to thrive. Unlikely GI bleed due to lack of BM and negative guaiac performed by ED. Will confirm with occult stool. Otherwise, will monitor H&H. Nephrology following for PADDY, recommendations appreciated. Recommending another unit of blood and thoracentesis. Will obtain diagnostic thoracentesis on Wednesday. Plan/VTE VTE Prophylaxis Ordered?: Yes Plan 1. Symptomatic anemia -Pale and weak -Hemoglobin on admission low at 7.4 -Guaiac by ED negative. Will double check with Hemoccult stool. -Multifactorial including poor nutrition and CKD -Will transfuse another unit of blood for a total of 2units 2. Hyponatremia -On admission, Na 126 -Now closer to baseline -Nephrology following, recommendations appreciated -Monitor BMP 3. Hypoglycemia -On admission, glucose was 68 -From poor oral intake -Fluids include dextrose, monitor blood glucose -Improved 4. Ascites -Suspecting to be secondary to cirrhosis -SAAG boarderline at 1 (<1.1) -S/P paracentesis on 01/30/2021. PMN <250 -Removed 6.25L -Gave albumin 5. Large left pleural effusion -Stable at room air -Pending echocardiogram results -Plan for thoracentesis on Wednesday 6. CKD stage 4 -Creatinine in 10/2020 was 1.7 -Creatinine close to baseline -Monitor 7. Gout -Continue with allopurinol 8. Poor oral intake -May be secondary to ascites -Monitor for clinical improvement -Ensure with meals -Dietitian consultation ordered 9. BPH -Started tamsulosin 10. Hypertension -Due to acute anemia and poor oral intake. Will hold carvedilol and furosemide 11. DVT ppx -Due to anemia, SCD and TEDs Disposition: Plan for thoracentesis on Wednesday. Patient may need rehab, physical therapy to reassess at the next few sessions VS, I&O, 24H, Fishbone Vital Signs/I&O Vital Signs Date Time Temp Pulse Resp B/P (MAP) Pulse Ox O2 Delivery O2 Flow Rate FiO2 02/01/21 13:30 97.3 77 20 137/59 (85) 99 Room Air I&O- Last 24 Hours up to 6 AM 02/01/21 06:00 Intake Total 1290.0 ml Output Total 550 ml Balance 740.0 ml Laboratory Data 24H LABS Laboratory Tests 2 02/01/21 04:46: Nucleated Red Blood Cells % (auto) 0.0, Anion Gap 5L, Glomerular Filtration Rate 44.5, Calcium Level 7.4L CBC/BMP Laboratory Tests 02/01/21 04:46 Microbiology Microbiology 01/30/21 Fungal Smear, Received Pending 01/30/21 Fungal Culture, Received Pending 01/30/21 Anaerobic Culture - Final, Complete 01/30/21 Gram Stain - Final, Complete 01/30/21 Body Fluid Culture - Final, Complete 01/30/21 Blood Culture - Preliminary, Resulted No Growth after 48 hours. All Specime... 01/30/21 Urine Culture - Final, Complete Escherichia Coli 01/30/21 Blood Culture - Preliminary, Resulted No Growth after 48 hours. All Specime... GILDARDO FITZPATRICK DO Feb 01, 2021 18:31
[2021-02-01] MEDS: TAMSULOSIN 0.4 MG CAP PO SCH (21:45)
[2021-02-01] MEDS: allopurinoL 100 MG TAB PO SCH (21:45)
[2021-02-02] VITALS (7 sets, daily range): BP systolic 108–128; BP diastolic 54–92
[2021-02-02 06:31] LABS: HEMATOCRIT 31.5 % (42.0-52.0); MEAN CORPUSCULAR HEMOGLOBIN 29.1 pg (27.0-33.0); MEAN CORPUSCULAR HGB CONC 32.7 g/dl (32.0-36.5); PLATELET COUNT, AUTOMATED 257 10^3/uL (150-450); RED BLOOD COUNT 3.54 10^6/uL (4.30-6.10); WHITE BLOOD COUNT 6.9 10^3/uL (4.0-10.0)
[2021-02-02 06:32] LABS: HEMOGLOBIN 10.3 g/dl (13.5-17.5)
[2021-02-02 06:57] LABS: CALCIUM LEVEL 7.8 MG/DL (8.8-10.2); CREATININE FOR GFR 1.49 MG/DL (0.70-1.30); GLOMERULAR FILTRATION RATE 47.6 (>35); POTASSIUM SERUM 4.3 MEQ/L (3.5-5.1)
[2021-02-02] MEDS: DOCUSATE SODIUM 100MG CAPSULE PO SCH ×2 (09:00→20:45)
[2021-02-02] MEDS: LACTOBACILLUS ACIDOPHILUS CAP (BACID) PO SCH ×2 (09:03→18:29)
[2021-02-02] MEDS: cefTRIAXone SOD 1 GM in D5W MINI-BAG PLUS 50 ML IV SCH (09:03)
[2021-02-02] MEDS ORDERED: FLUBLOK(EGG FREE)(QUAD)INFLUENZA VACC 0.5ML SYRINGE 18YRS & OLDER IM ONE (10:00)
[2021-02-02] MEDS: FAMOTIDINE 20 MG TAB PO SCH ×2 (12:53→20:48)
--- NOTE | 2021-02-02 14:33 | IPNPDOC ---
Subjective Date Seen The patient was seen on 02/02/21. Subjective Chief Complaint/HPI Mr. Sarabia is an 85 year old male with cirrhosis and CKD stage 4 who presents with weakness and found to have poor oral intake, symptomatic anemia, and hyponatremia. This morning, he denies chest pain or dyspnea. He is reporting dry mouth which has made solid foods difficult for him to eat. He tells me that he does not produce saliva. We don't have anti-Ro or anti-La testing here. He would need to take frequent sips of water to keep mouth moist and food with extra sauce. Objective Physical Examination General Exam: Positive: Cooperative Eye Exam: Positive: EOMI ENT Exam: Positive: Tongue Midline Neck Exam: Positive: Supple; Negative: JVD Chest Exam: Positive: Diminished Heart Exam: Positive: Rate Normal, Regular Rhythm Abdomen Exam: Positive: Normal bowel sounds, Soft, Tenderness (mild tenderness upper abdomen) Extremity Exam: Negative: Edema Neuro Exam: Positive: Cranial Nerves 3-12 NL Psych Exam: Positive: Mental status NL, Mood NL Assessment /Plan Assessment Mr. Sarabia is an 85 year old male with cirrhosis and CKD stage 4 who presents with weakness and found to have symptomatic anemia, hyponatremia, and failure to thrive. Unlikely GI bleed due to lack of BM and negative guaiac performed by ED. Will confirm with occult stool. Otherwise, will monitor H&H. Nephrology following for PADDY, recommendations appreciated. Recommending another unit of blood and thoracentesis. Will obtain diagnostic thoracentesis on Wednesday. Plan/VTE VTE Prophylaxis Ordered?: Yes Plan 1. Symptomatic anemia -Pale and weak -Hemoglobin on admission low at 7.4 -Guaiac by ED negative. Will double check with Hemoccult stool. -Multifactorial including poor nutrition and CKD -Total of 2u pRBC given 2. Hyponatremia -On admission, Na 126 -Now closer to baseline -Nephrology following, recommendations appreciated -Monitor BMP 3. Hypoglycemia -On admission, glucose was 68 -From poor oral intake -Fluids include dextrose, monitor blood glucose -Improved 4. Ascites -Suspecting to be secondary to cirrhosis -SAAG boarderline at 1 (<1.1) -S/P paracentesis on 01/30/2021. PMN <250 -Removed 6.25L -Gave albumin 5. Large left pleural effusion -Stable at room air -Pending echocardiogram results -Plan for thoracentesis on Wednesday 6. CKD stage 4 -Creatinine in 10/2020 was 1.7 -Creatinine close to baseline -Monitor 7. Gout -Continue with allopurinol 8. Poor oral intake -May be secondary to ascites -Monitor for clinical improvement -Ensure with meals -Dietitian consultation ordered 9. Dry mouth -Reports dry mouth -Frequent sips and food with extra sauce -Patient will need to follow up with PCP for workup for Sjgren's syndrome 10. BPH -Started tamsulosin 11. Hypertension -Due to acute anemia and poor oral intake. Will hold carvedilol and furosemide 12. DVT ppx -Due to anemia, SCD and TEDs Disposition: Plan for thoracentesis on Wednesday. Patient may need rehab, physical therapy to reassess at the next few sessions VS, I&O, 24H, [place] Vital Signs/I&O Vital Signs Date Time Temp Pulse Resp B/P (MAP) Pulse Ox O2 Delivery O2 Flow Rate FiO2 02/02/21 06:00 98.7 66 18 113/92 (99) 98 Room Air I&O- Last 24 Hours up to 6 AM 02/02/21 06:00 Intake Total 2090 ml Output Total 300 ml Balance 1790 ml Laboratory Data 24H LABS Laboratory Tests 2 02/02/21 05:59: Nucleated Red Blood Cells % (auto) 0.0, Anion Gap 5L, Glomerular Filtration Rate 47.6, Calcium Level 7.8L CBC/BMP Laboratory Tests 02/02/21 05:59 Microbiology Microbiology 01/30/21 Fungal Smear, Received Pending 01/30/21 Fungal Culture, Received Pending 01/30/21 Anaerobic Culture - Final, Complete 01/30/21 Gram Stain - Final, Complete 01/30/21 Body Fluid Culture - Final, Complete 01/30/21 Blood Culture - Preliminary, Resulted No Growth after 72 hours. All specime... 01/30/21 Urine Culture - Final, Complete Escherichia Coli 01/30/21 Blood Culture - Preliminary, Resulted No Growth after 72 hours. All specime... GILDARDO FITZPATRICK DO Feb 02, 2021 14:33
--- NOTE | 2021-02-02 18:53 | IPN ---
NEPHROLOGY PROGRESS NOTE DATE: 02/02/2021 SUBJECTIVE: Mr. Sarabia is seen this afternoon on his bedside. He is eating his lunch. He reports difficulty with swallowing. Denies any vomiting or diarrhea. He has no dyspnea or chest pain. He had a large amount of ascites drained on the day of admission. PHYSICAL EXAMINATION: Temperature 97.8 degrees Fahrenheit, heart rate 62 per minute, respiratory rate 18 per minute, blood pressure 126/54 mmHg, oxygen saturation 96% on room air. HEAD: Atraumatic. He is pale, but not in any acute distress. NECK: Supple and without jugular venous distention (JVD) or thyroid enlargement. HEART SOUNDS: Regular. LUNGS: Diminished breath sounds, particularly on the left side, where he has a large pleural effusion. ABDOMEN: Distended with ascites. Bowel sounds are normal. EXTREMITIES: Without any cyanosis or clubbing. NEUROLOGIC: He seems to be mentating at baseline. LABORATORY DATA: Today's labs show sodium level 130, potassium 4.3, CO2 26, BUN 30, creatinine 1.49, glucose 69, calcium 7.4. PROBLEMS: 1. Hyponatremia. Most likely related to cirrhosis of liver and ascites in the setting of chronic kidney disease. At present, sodium level is essentially unchanged for the last five days. Patient should continue with restricted fluid intake of 1500 mL per day. 2. Cirrhosis of liver with recurrent ascites. Patient has alcoholic cirrhosis with recurrent ascites and had a paracentesis done on the day of admission; 6.2 liters of fluid was removed and he is likely to require intermittent paracentesis. 3. Anemia. His anemia is stable and does not need any urgent intervention. Patient has been already transfused 2 units of packed red blood cells. 4. Acute kidney injury superimposed on chronic kidney disease. Kidney function has improved and seems to be stable at present. No urgent intervention is needed from a renal standpoint.
[2021-02-02] MEDS: allopurinoL 100 MG TAB PO SCH (20:48)
[2021-02-02] MEDS: TAMSULOSIN 0.4 MG CAP PO SCH (20:48)
[2021-02-03 06:00] VITALS: BP 123/60
[2021-02-03 06:13] LABS: HEMATOCRIT 33.3 % (42.0-52.0); HEMOGLOBIN 10.9 g/dl (13.5-17.5); MEAN CORPUSCULAR HEMOGLOBIN 28.8 pg (27.0-33.0); MEAN CORPUSCULAR HGB CONC 32.7 g/dl (32.0-36.5); MEAN CORPUSCULAR VOLUME 87.9 fl (80.0-96.0); PLATELET COUNT, AUTOMATED 280 10^3/uL (150-450); RED BLOOD COUNT 3.79 10^6/uL (4.30-6.10); WHITE BLOOD COUNT 6.5 10^3/uL (4.0-10.0)
[2021-02-03 06:30] LABS: ALBUMIN 2.1 GM/DL (3.2-5.2); BILIRUBIN,TOTAL 0.4 MG/DL (0.2-1.0); CALCIUM LEVEL 8.1 MG/DL (8.8-10.2); CREATININE FOR GFR 1.42 MG/DL (0.70-1.30); GLOMERULAR FILTRATION RATE 50.3 (>35); POTASSIUM SERUM 4.5 MEQ/L (3.5-5.1)
[2021-02-03] MEDS: cefTRIAXone SOD 1 GM in D5W MINI-BAG PLUS 50 ML IV SCH (08:28)
[2021-02-03] MEDS: LACTOBACILLUS ACIDOPHILUS CAP (BACID) PO SCH ×2 (08:28→17:35)
[2021-02-03] MEDS: DOCUSATE SODIUM 100MG CAPSULE PO SCH ×2 (08:28→20:46)
[2021-02-03] MEDS ORDERED: SODIUM BICARBONATE 8.4% INJ 50MEQ 50 ML VIAL As Ordered ONE (09:24)
[2021-02-03] MEDS ORDERED: LIDOCAINE 1% MDV 20ML VIAL As Ordered ONE (09:25)
--- NOTE | 2021-02-03 10:20 | ECHO ---
DATE OF PROCEDURE: 01/31/2021 Age: 85 Gender: Male Height: 180 cm Weight: 59 kg REFERRING PHYSICIAN: Fredi Kumar DO. INDICATION: Pericardial effusion. MEASUREMENTS: 2D Measurements: Aortic root 3.4 cm Left atrium 3.1 cm Intraventricular septum 0.83 cm Posterior wall 0.97 cm Left ventricle diastole 4.9 cm Inferior vena cava 1.9 cm Doppler Measurements: Trace aortic regurgitation No aortic stenosis Aortic valve velocity 115 cm/s LVOT velocity 60.1 cm/s Trace mitral regurgitation No mitral stenosis Mitral E velocity 81.4 cm/s Mitral A velocity 89.5 cm/s Mitral deceleration time 187 msec Mild tricuspid regurgitation Estimated right ventricular systolic pressure 44 mmHg Estimated right atrial pressure 10 mmHg Trace pulmonic regurgitation MITRAL ANNULAR TISSUE DOPPLER E prime septal 7.2 cm/s, E prime lateral 7.4 cm/s DESCRIPTION: Rhythm was atrial fibrillation with frequent PVCs. Image quality was adequate. This was a 2D, M-mode, color flow Doppler, and pulsed wave Doppler examination including mitral annular tissue Doppler. CONCLUSIONS: 1. Left pleural effusion with appearance of tumor masses seen in the pleural effusion adjacent to the apex and lateral wall of the left ventricle. 2. Presence of ascites around the liver. 3. Very small pericardial effusion. No diastolic chamber collapse. 4. Normal left ventricle internal dimensions and wall thickness. Normal regional LV wall motion and wall thickening. Normal LV systolic function. LVEF 60% by visual estimate. Unable to adequately assess LV diastolic function in the setting of atrial fibrillation. 5. Moderate aortic valve sclerosis of a 3-cuspid aortic valve. No aortic stenosis. Trace aortic regurgitation. 6. Moderate mitral annular calcification. Trace mitral regurgitation. No mitral stenosis. 7. Suggestive of moderate elevation of estimated right ventricle systolic pressure. Mild tricuspid regurgitation. MTDD
--- NOTE | 2021-02-03 10:27 | REP ---
INDICATION: POST LEFT THORA, 2 VIEW. COMPARISON: Comparison chest x-ray 01/30/2011.. TECHNIQUE: PA and lateral views. FINDINGS: The left pleural effusion is improved compared to the prior study post thoracentesis. There is no evidence of pneumothorax or other complication. Right lung remains clear. IMPRESSION: Improved left pleural effusion post thoracentesis. <Electronically signed by Slava Liriano > 02/03/21 1026
[2021-02-03 10:36] LABS: APPEARANCE, BODY FLUID TURBID (CLEAR); PLEURAL FL COLOR YELLOW (COLORLESS); SOURCE, BODY FLUID PLEURAL
[2021-02-03 10:46] LABS: PH BODY FLUID 7.585 UNITS (NOT ESTABLISHED); SOURCE, BODY FLUID pH PLEURAL
[2021-02-03 11:00] LABS: AMYLASE, BODY FLUID 15 U/L (NOT ESTABLISHED); CHOLESTEROL, BODY FLUID < 50 MG/DL (NOT ESTABLISHED); LDH, BODY FLUID 130 U/L (NOT ESTABLISHED); SOURCE, BODY FLUID ALBUMIN PLEURAL; SOURCE, BODY FLUID AMYLASE PLEURAL; SOURCE, BODY FLUID CHOL PLEURAL; SOURCE, BODY FLUID GLUCOSE PLEURAL; SOURCE, BODY FLUID LDH PLEURAL; SOURCE, BODY FLUID TOT PROTEIN PLEURAL; SOURCE, BODY FLUID TRIG PLEURAL; TOTAL PROTEIN, BODY FLUID 3.4 G/DL (NOT ESTABLISHED); TRIGLYCERIDE, BODY FLUID 320 MG/DL (NOT ESTABLISHED)
--- NOTE | 2021-02-03 11:55 | REP ---
INDICATION: Large left pleural effusion The patient has a history of left pleural effusion COMPARISON: None. TECHNIQUE: The procedure was performed by Dr. Palma under the personal supervision of Mariel Medina [facility], and under the direct supervision of Dr. Liriano The risks and benefits of the procedure were explained to the patient and an informed consent was obtained both verbally and written. Directly prior to the start of the procedure a formal time-out was completed in the procedure room. Pleural fluid in left lung zone was localized using ultrasound guidance. The skin was prepped and draped in a sterile fashion. Four ML of buffered lidocaine was used as a local anesthetic. Using ultrasound guidance an 8-[place] multi side-hole catheter was inserted using trocar technique. FINDINGS: Nine hundred mL of solid yellow colored fluid was withdrawn and sent to the laboratory for further analysis. The patient tolerated the procedure well and there were no immediate complications, and the patient was discharged back to the unit. IMPRESSION: Ultrasound-guided thoracentesis with removal of 900 mL of pleural fluid. <Electronically signed by Mariel Medina > 02/03/21 1117 <Electronically signed by Slava Liriano > 02/03/21 1152
[2021-02-03 12:32] LABS: TROPONIN I < 0.02 NG/ML (< 0.10)
[2021-02-03] MEDS: FAMOTIDINE 20 MG TAB PO SCH ×2 (12:36→20:45)
[2021-02-03] MEDS: LIDOCAINE 5% (LIDODERM) PATCH TD SCH (12:37)
[2021-02-03 14:00] VITALS: BP 152/68
[2021-02-03 14:33] LABS: LDH LACTATE DEHYDROGENASE 166 U/L (87-241)
--- NOTE | 2021-02-03 19:29 | IPNPDOC ---
Subjective Date Seen The patient was seen on 02/03/21. Subjective Chief Complaint/HPI Mr. Sarabia is an 85 year old male with cirrhosis and CKD stage 4 who presents with weakness and found to have poor oral intake, symptomatic anemia, and hyponatremia. Overnight, he had nausea and vomited once. Denies any association with food. Now has resolved. This morning, he denied any chest pain or dyspnea. He has some pain on the right lateral abdomen where he had fallen. He went to thoracentesis of left lung today. Removed 900mL of fluid. Objective Physical Examination General Exam: Positive: Cooperative Eye Exam: Positive: EOMI ENT Exam: Positive: Tongue Midline Neck Exam: Positive: Supple; Negative: JVD Chest Exam: Positive: Other (Right lung is clear. Left lung has course, wet breath sounds after thoracentesis. ) Heart Exam: Positive: Rate Normal, Regular Rhythm Abdomen Exam: Positive: Normal bowel sounds, Soft, Tenderness (mild tenderness upper abdomen) Extremity Exam: Negative: Edema Neuro Exam: Positive: Cranial Nerves 3-12 NL Psych Exam: Positive: Mental status NL, Mood NL Assessment /Plan Assessment Mr. Sarabia is an 85 year old male with cirrhosis and CKD stage 4 who presents with weakness and found to have symptomatic anemia, hyponatremia, and failure to thrive. Unlikely GI bleed due to lack of BM and negative guaiac performed by ED. Will confirm with occult stool. Otherwise, will monitor H&H. Nephrology following for PADDY, recommendations appreciated. Otherwise, patient had thoracentesis of left lung today. Removed 900mL of exudative fluid. Pending fluid cultures and cytology Plan/VTE VTE Prophylaxis Ordered?: Yes Plan 1. Symptomatic anemia -Pale and weak -Hemoglobin on admission low at 7.4 -Guaiac by ED negative. Will double check with Hemoccult stool. -Multifactorial including poor nutrition and CKD -Total of 2u pRBC given -Hemoglobin stable 2. Hyponatremia -On admission, Na 126 -Now closer to baseline -Nephrology following, recommendations appreciated -Monitor BMP 3. Hypoglycemia -On admission, glucose was 68 -From poor oral intake -Fluids include dextrose, monitor blood glucose -Improved 4. Ascites -Suspecting to be secondary to cirrhosis -SAAG boarderline at 1 (<1.1) -S/P paracentesis on 01/30/2021. PMN <250 -Removed 6.25L -Gave albumin 5. Large left pleural effusion -Echo on 01/31/2021 demonstrate EF 60% -900mL of exudative fluid removed -Pending cultures and cytology 6. CKD stage 4 -Creatinine in 10/2020 was 1.7 -Creatinine close to baseline -Monitor 7. Gout -Continue with allopurinol 8. Poor oral intake -May be secondary to ascites -Monitor for clinical improvement -Ensure with meals -Dietitian consultation ordered 9. Dry mouth -Reports dry mouth -Frequent sips and food with extra sauce -Will try adding saliva substitute -Patient will need to follow up with PCP for workup for Sjgren's syndrome 10. BPH -Started tamsulosin 11. Hypertension -Due to acute anemia and poor oral intake. Will hold carvedilol and furosemide 12. DVT ppx -Due to anemia, SCD and TEDs Disposition: Pending fluid culture and cytology and PT recommendations VS, I&O, 24H, Fishbone Vital Signs/I&O Vital Signs Date Time Temp Pulse Resp B/P (MAP) Pulse Ox O2 Delivery O2 Flow Rate FiO2 02/03/21 10:12 69 18 97 Room Air 02/03/21 09:19 96.4 02/03/21 06:00 123/60 (81) I&O- Last 24 Hours up to 6 AM 02/03/21 06:00 Intake Total 440 ml Output Total 340 ml Balance 100 ml Laboratory Data 24H LABS Laboratory Tests 2 02/03/21 05:41: Nucleated Red Blood Cells % (auto) 0.0, Anion Gap 8, Glomerular Filtration Rate 50.3, Calcium Level 8.1L, Total Bilirubin 0.4, Aspartate Amino Transf (AST/SGOT) 17, Alanine Aminotransferase (ALT/SGPT) 12, Alkaline Phosphatase 57, Total Protein 6.0L, Albumin 2.1L, Albumin/Globulin Ratio 0.5 02/03/21 09:45: Body Fluid pH 7.585, Body Fluid pH Source PLEURAL, Body Fluid WBC (Auto) 190H, Body Fluid RBC (Auto) < 2, Body Fluid Mononuclear Cells % Auto 81.0H, Fluid Polymorphonuclear Cell % Auto 19.0H, Body Fluid Glucose Source PLEURAL, Body Fluid Glucose 85, Body Fluid Protein Source PLEURAL, Body Fluid Total Protein 3.4, Body Fluid Albumin Source PLEURAL, Body Fluid Albumin 1.2, Body Fluid LDH Source PLEURAL, Body Fluid Lactate Dehydrogenase 130, Body Fluid Amylase Source PLEURAL, Body Fluid Amylase 15, Body Fluid Cholesterol < 50, Body Fluid Cholesterol Source PLEURAL, Body Fluid Triglyceride Source PLEURAL, Body Fluid Triglycerides 320, Pleural Fluid Source PLEURAL, Pleural Fluid Color YELLOW, Pleural Fluid Appearance TURBID 02/03/21 11:49: Troponin I < 0.02 CBC/BMP Laboratory Tests 02/03/21 05:41 Microbiology Microbiology 02/03/21 Acid Fast Stain, Received Pending 02/03/21 Mycobacterial Culture, Received Pending 02/03/21 Fungal Smear, Received Pending 02/03/21 Fungal Culture, Received Pending 02/03/21 Gram Stain - Final, Resulted 02/03/21 Anaerobic Culture, Resulted Pending 02/03/21 Body Fluid Culture, Received Pending 01/30/21 Fungal Smear, Received Pending 01/30/21 Fungal Culture, Received Pending 01/30/21 Anaerobic Culture - Final, Complete 01/30/21 Gram Stain - Final, Complete 01/30/21 Body Fluid Culture - Final, Complete 01/30/21 Blood Culture - Preliminary, Resulted No Growth after 72 hours. All specime... 01/30/21 Urine Culture - Final, Complete Escherichia Coli 01/30/21 Blood Culture - Preliminary, Resulted No Growth after 72 hours. All specime... GILDARDO FITZPATRICK 29, 2021 14:31
[2021-02-03] MEDS: TAMSULOSIN 0.4 MG CAP PO SCH (20:46)
[2021-02-03] MEDS: **NOTE PATIENT COMMENT** MISC XX SCH (20:46)
[2021-02-03] MEDS: allopurinoL 100 MG TAB PO SCH (20:46)
[2021-02-03 22:00] VITALS: BP 85/54
[2021-02-04 01:14] VITALS: BP 88/54
[2021-02-04] MEDS ORDERED: SODIUM CHLORIDE 0.9% 1000ML IV ONE (01:40)
[2021-02-04 07:34] LABS: HEMATOCRIT 30.9 % (42.0-52.0); HEMOGLOBIN 10.2 g/dl (13.5-17.5); MEAN CORPUSCULAR HEMOGLOBIN 28.7 pg (27.0-33.0); PLATELET COUNT, AUTOMATED 260 10^3/uL (150-450); RED BLOOD COUNT 3.55 10^6/uL (4.30-6.10); WHITE BLOOD COUNT 8.8 10^3/uL (4.0-10.0)
[2021-02-04 07:54] LABS: CALCIUM LEVEL 7.8 MG/DL (8.8-10.2); CREATININE FOR GFR 1.68 MG/DL (0.70-1.30); GLOMERULAR FILTRATION RATE 41.4 (>35); POTASSIUM SERUM 4.4 MEQ/L (3.5-5.1)
--- NOTE | 2021-02-04 08:41 | ECGEPIP ---
[facility] Test Date: 2021-02-03 Pat Name: DONALDO DEL ROSARIO Department: Room: [place] [address] Gender: Male Director Of Distance Learning: CHAD : [id number] Requested By: GILDARDO Singh Order Number: [id number] Reading MD: Rock Bai Measurements Intervals [place] Rate: 63 P: 76 OR: 172 QRS: -39 QRSD: 94 T: 53 QT: 450 QTc: 460 Interpretive Statements Normal sinus rhythm Left axis deviation Delayed anterior R wave progression Electronically Signed on 02-04-2021 8:41:09 EDT by Rock Bai
[2021-02-04] MEDS: MIDODRINE 5 MG TAB PO SCH ×3 (08:59→17:12)
[2021-02-04] MEDS: DOCUSATE SODIUM 100MG CAPSULE PO SCH ×2 (08:59→20:26)
[2021-02-04] MEDS: cefTRIAXone SOD 1 GM in D5W MINI-BAG PLUS 50 ML IV SCH (08:59)
[2021-02-04] MEDS: LACTOBACILLUS ACIDOPHILUS CAP (BACID) PO SCH ×2 (08:59→17:12)
[2021-02-04] MEDS: LIDOCAINE 5% (LIDODERM) PATCH TD SCH (08:59)
[2021-02-04] MEDS: SALIVA SUBSTITUTE(MOUTHKOTE) BTL MT SCH ×3 (09:01→17:12)
[2021-02-04 11:30] VITALS: BP 120/58
[2021-02-04] MEDS: FAMOTIDINE 20 MG TAB PO SCH ×2 (11:30→20:30)
--- NOTE | 2021-02-04 12:47 | IPN ---
PROGRESS NOTE DATE: 02/04/2021 SUBJECTIVE: Mr. Sarabia is seen this morning on his bedside. I could not see him yesterday as he was getting a paracentesis. He did have about 600 mL fluid drained from his left chest. The patient is feeling about the same. He denies any nausea, vomiting, dyspnea, or chest pain. OBJECTIVE: VITAL SIGNS: Temperature 98 degrees Fahrenheit, heart rate 60 per minute, and respiratory rate 18 per minute. Blood pressure was down to 85/54 last evening; however, this morning it is up to 120/58 mmHg and oxygen saturation is 94% on room air. GENERAL APPEARANCE: The patient is pale and without any acute distress. HEAD: Atraumatic. NECK: Supple and without JVD or thyroid enlargement. There is no oral thrush or ulcers. HEART: Sounds are regular. LUNGS: Reveal diminished breath sounds at the left base. ABDOMEN: Distended with ascites and nontender. Bowel sounds are present. EXTREMITIES: Without any cyanosis or clubbing. NEUROLOGIC: He is at his baseline mentation and without focal deficit. LABORATORY DATA: Today's labs show WBC count 8.8, hemoglobin 10.2, and hematocrit 30.9, platelets 260,000. Sodium is down to 128, potassium 4.4, chloride 98, CO2 of 24, BUN 35, and creatinine 1.69. Glucose 74 and calcium 7.8. PROBLEMS: 1. Hyponatremia. His sodium level gradually worsened. This is most likely related to hepatic dysfunction and kidney disease. His volume status seems to be slightly depleted. We will recheck his urine sodium and urine creatinine along with osmolarity. I will also check his cortisol level for tomorrow morning. He already had his thyroid function tests done on January 30. His TSH level was within normal range. At this point, we will continue with fluid restriction as much as possible. He is not on any diuretic and I would not recommend giving him a diuretic due to risk for dehydration. 2. Hypotension. Blood pressure has been chronically low and the patient remains on midodrine 10 mg t.i.d. 3. Ascites with cirrhosis of liver. The patient had a paracentesis done and he remains on ceftriaxone for possible spontaneous peritonitis.
[2021-02-04 14:00] VITALS: BP 93/53
[2021-02-04 17:13] VITALS: BP 96/52
--- NOTE | 2021-02-04 19:00 | IPNPDOC ---
Text Note Date of Service The patient was seen on 02/04/21. NOTE Subjective: No any acute events overnight. Patient denied fever, chills, nausea, vomiting, diarrhea or dysuria Objective: GENERAL APPEARANCE: Cachectic male HEENT: no scleral icterus, no JVD, EOMI CARDIOVASCULAR: S1S2 LUNGS: Diminished lung sounds bilaterally ABDOMEN: soft & not tender w palpitation MUSCULOSKELETAL: no cyanosis, no swelling INTEGUMENT: no generalized pallor NEUROLOGICAL: cranial nerve function from 2-12 intact intact, follows commands, speech not dysarthric Assessment and plan Patient is an 85 year old male with cirrhosis and CKD stage 4 who presents with weakness and found to have poor oral intake, symptomatic anemia, and hyponatremia. Anemia Hemoglobin on admission low at 7.4 Stool for occult blood negative Status post 2 units of blood transfusion Hemoglobin stable today Liver cirrhosis/ascites S/P paracentesis on 01/30/2021. PMN <250 Patient has a high risk of SBP Child Mendoza score class B indicates superintendent container terminal antibiotic prophylaxis Ciprofloxacin 500 by mouth daily Prognosis poor Nephrology team did not recommend diuresis due to high risk of dehydration Hyponatremia Worsening today We will check cortisol a.m. TSH within normal limit We'll check urine lites Nephrology team follows him Hypotension Midodrine 3 times a day Cachexia/Poor oral intake BMI 18.4 Temporal wasting Reduced muscle mass Ensure Necktie Centralizing Machine Operator assessment Large left pleural effusion Echo on 01/31/2021 demonstrate EF 60% 900mL of exudative fluid removed. Pathology report: Enlarged and reactive mesothelial cells, admixed with macrophages. If clinical suspicion of a neoplastic process/mesothelioma exists, follow up and or additional biopsies may be helpful. Will repeat CT with contrast tomorrow Deconditioning/failure to thrive PT/OT CKD stage 4 Creatinine in 10/2020 was 1.7 Creatinine close to baseline Gout Continue with allopurinol UTI Urine culture positive for Escherichia coli Patient received treatment with ceftriaxone with positive effect VS,Fishbone, I+O VS, Fishbone, I+O Laboratory Tests 02/04/21 06:58 Vital Signs Date Time Temp Pulse Resp B/P (MAP) Pulse Ox O2 Delivery O2 Flow Rate FiO2 02/04/21 17:13 72 96/52 (67) 02/04/21 14:00 97.4 17 97 Room Air I&O- Last 24 Hours up to 6 AM 02/04/21 06:00 Intake Total 1110 ml Output Total 175 ml Balance 935 ml CHAVA SOLITARIO DO Feb 04, 2021 19:00
--- NOTE | 2021-02-04 19:49 | REP ---
INDICATION: pleural effusion. COMPARISON: 02/03/2021, 01/30/2021 TECHNIQUE: AP portable chest FINDINGS: Left CP angle shows slightly more blunting which may indicate slightly larger effusion although there is a more lordotic projection today in addition the retrocardiac zone shows more soft tissue density representing some atelectasis/infiltrate with effusion there is new patchy atelectatic change just above the right diaphragm with no gross effusion. No cardiomegaly, vascular redistribution or pulmonary edema. The aorta is calcified at the arch without aneurysm. Bones intact. No free air under the diaphragm. IMPRESSION: 1. Slightly larger left pleural effusion than yesterday with retrocardiac left lower lobe atelectasis/infiltrate with effusion and slightly more blunting left CP angle. This may be slightly exaggerated by lordotic portable technique. 2. Patchy atelectatic changes above the right diaphragm now visible. No other new finding. <Electronically signed by Brian Mcdonnell > 02/04/211944
[2021-02-04] MEDS: TAMSULOSIN 0.4 MG CAP PO SCH (20:30)
[2021-02-04] MEDS: ASPIRIN 81MG ENTERIC TABLET PO SCH (20:30)
[2021-02-04] MEDS: allopurinoL 100 MG TAB PO SCH (20:30)
[2021-02-04] MEDS: HEPARIN SOD (PORCINE) 5000UNITS/ML 1ML VIAL/SYRINGE SQ SCH (20:31)
[2021-02-04] MEDS: **NOTE PATIENT COMMENT** MISC XX SCH (20:33)
[2021-02-04 22:00] VITALS: BP 109/57
[2021-02-05] MEDS: CIPROFLOXACIN 500MG TABLET PO SCH (05:14)
[2021-02-05 06:00] VITALS: BP 103/58
[2021-02-05 06:26] LABS: HEMATOCRIT 32.5 % (42.0-52.0); HEMOGLOBIN 10.6 g/dl (13.5-17.5); MEAN CORPUSCULAR HEMOGLOBIN 28.8 pg (27.0-33.0); MEAN CORPUSCULAR HGB CONC 32.6 g/dl (32.0-36.5); MEAN CORPUSCULAR VOLUME 88.3 fl (80.0-96.0); PLATELET COUNT, AUTOMATED 276 10^3/uL (150-450); RED BLOOD COUNT 3.68 10^6/uL (4.30-6.10)
[2021-02-05 06:54] LABS: CALCIUM LEVEL 7.6 MG/DL (8.8-10.2); CREATININE FOR GFR 1.57 MG/DL (0.70-1.30); GLOMERULAR FILTRATION RATE 44.8 (>35); POTASSIUM SERUM 4.8 MEQ/L (3.5-5.1)
[2021-02-05] MEDS: LACTOBACILLUS ACIDOPHILUS CAP (BACID) PO SCH ×2 (08:52→17:07)
[2021-02-05] MEDS: SALIVA SUBSTITUTE(MOUTHKOTE) BTL MT SCH ×3 (08:52→17:07)
[2021-02-05] MEDS: DOCUSATE SODIUM 100MG CAPSULE PO SCH ×2 (08:52→20:15)
[2021-02-05] MEDS: MIDODRINE 5 MG TAB PO SCH ×3 (08:52→17:07)
[2021-02-05] MEDS: ASPIRIN 81MG ENTERIC TABLET PO SCH (08:52)
[2021-02-05] MEDS: MAGNESIUM OXIDE 400MG TAB (MAG-OX) PO SCH (08:52)
[2021-02-05] MEDS: HEPARIN SOD (PORCINE) 5000UNITS/ML 1ML VIAL/SYRINGE SQ SCH ×2 (08:53→20:16)
[2021-02-05] MEDS: LIDOCAINE 5% (LIDODERM) PATCH TD SCH (08:53)
[2021-02-05 10:45] LABS: CORTISOL AM 15.4 UG/DL (4.3-22.4)
--- NOTE | 2021-02-05 12:08 | IPN ---
PROGRESS NOTE DATE: 02/05/2021 SUBJECTIVE: Mr. Sarabia is seen this morning on his bedside. He is feeling about the same and denies any new complaints. He reports eating better and denies any dyspnea or chest pain. He has no nausea or vomiting. OBJECTIVE: VITAL SIGNS: Temperature 97.3 degrees Fahrenheit, heart rate 75 per minute, and respiratory rate 20 per minute. Blood pressure 103/58 mmHg and oxygen saturation 95% on room air. HEAD: Atraumatic. NECK: Supple and without JVD or thyroid enlargement. HEART: Sounds are regular. LUNGS: Diminished breath sounds in the left lower half. ABDOMEN: Soft, distended with ascites, but nontender. Bowel sounds are present. EXTREMITIES: Without any cyanosis or clubbing. MEDICATIONS: Reviewed and it is noted that intravenous ceftriaxone has been stopped and he is now on ciprofloxacin 500 mg daily. The rest of his medications are unchanged. LABORATORY DATA: Today's labs show WBC count 6.0, hemoglobin 10.6, hematocrit 32.5. Sodium 130, potassium 4.8, chloride 100, CO2 of 26, BUN 35, and creatinine 1.57. Glucose 81 and calcium 7.6. PROBLEMS: 1. Hyponatremia. Sodium level improved from yesterday. The patient should remain on oral fluid restriction. We have ordered repeat urine studies, but those are not performed as of yet. 2. Acute kidney injury superimposed on chronic kidney disease. Kidney function is mostly stable with mild fluctuations. At this point, he is not on any diuretic and IV fluids. I will continue to monitor as needed. 3. Hypotension. This is a chronic issue and he has been on midodrine, which should be continued. 4. Anemia. His anemia is stable and does not need any urgent intervention. 5. Recurrent ascites with cirrhosis of liver and left pleural effusion. The patient had a paracentesis done and also had left pleurocentesis done. We should continue with low sodium diet and moderate oral fluid restriction. I would avoid diuretic due to his advanced age and risk for dehydration. 6. Generalized weakness. Chronic issue due to lack of activity. Probably he can benefit from some physical therapy.
[2021-02-05] MEDS: FAMOTIDINE 20 MG TAB PO SCH ×2 (12:22→20:15)
[2021-02-05] MEDS: FERROUS GLUCONATE 324 MG TAB PO SCH (12:22)
[2021-02-05 14:00] VITALS: BP 106/58
--- NOTE | 2021-02-05 16:15 | IPNPDOC ---
Text Note Date of Service The patient was seen on 02/05/21. NOTE Subjective: No any acute events overnight. I discussed with patient the goal of treatment and poor prognosis. Patient would like to have discussion with palliative care. Objective: GENERAL APPEARANCE: Cachectic male HEENT: no scleral icterus, no JVD, EOMI CARDIOVASCULAR: S1S2 LUNGS: Diminished lung sounds bilaterally ABDOMEN: soft & not tender w palpitation, moderately distended MUSCULOSKELETAL: no cyanosis, no swelling INTEGUMENT: no generalized pallor NEUROLOGICAL: cranial nerve function from 2-12 intact intact, follows commands, speech not dysarthric Assessment and plan Patient is an 85 year old male with cirrhosis and CKD stage 4 who presents with weakness and found to have poor oral intake, symptomatic anemia, and hyponatremia. Anemia Hemoglobin on admission low at 7.4 Stool for occult blood negative Status post 2 units of blood transfusion Hemoglobin stable today Liver cirrhosis/ascites S/P paracentesis on 01/30/2021. PMN <250 Patient has a high risk of SBP Child Mendoza score class B indicates [facility] antibiotic prophylaxis Ciprofloxacin 500 by mouth daily Prognosis poor Nephrology team did not recommend diuresis due to high risk of dehydration Hyponatremia cortisol a.m. with a normal limit TSH within normal limit Await urine lites Nephrology team follows him Hypotension Midodrine 3 times a day Cachexia/Poor oral intake BMI 18.4 Temporal wasting Reduced muscle mass Ensure Bobbin Doffer assessment Large left pleural effusion Echo on 01/31/2021 demonstrate EF 60% 900mL of exudative fluid removed. Pathology report: Enlarged and reactive mesothelial cells, admixed with macrophages. If clinical suspicion of a neoplas tic process/mesothelioma exists, follow up and or additional biopsies may be helpful. Will repeat CT with contrast tomorrow Deconditioning/failure to thrive PT/OT Palliative care consult Acute on chronic kidney injury Slightly improved today Patient was diagnosed with CKD stage 4 Creatinine in 10/2020 was 1.7 Gout Continue with allopurinol UTI Urine culture positive for Escherichia coli Patient received treatment with ceftriaxone with positive effect VS,Fishbone, I+O VS, Fishbone, I+O Laboratory Tests 02/05/21 06:03 Vital Signs Date Time Temp Pulse Resp B/P (MAP) Pulse Ox O2 Delivery O2 Flow Rate FiO2 02/05/21 14:00 97.5 67 17 106/58 (74) 97 Room Air I&O- Last 24 Hours up to 6 AM 02/05/21 06:00 Intake Total 1290 ml Output Total 175 ml Balance 1115 ml CHAVA SOLITARIO DO Feb 05, 2021 16:15
[2021-02-05] MEDS: **NOTE PATIENT COMMENT** MISC XX SCH (20:15)
[2021-02-05] MEDS: TAMSULOSIN 0.4 MG CAP PO SCH (20:15)
[2021-02-05] MEDS: allopurinoL 100 MG TAB PO SCH (20:15)
[2021-02-05 22:00] VITALS: BP 117/52
[2021-02-06] MEDS: CIPROFLOXACIN 500MG TABLET PO SCH (05:48)
[2021-02-06 06:00] VITALS: BP 116/54
[2021-02-06 06:35] LABS: BASO % 0.6 % (0.0-1.0); EOS # 0.3 10^3/uL (0.0-0.5); EOS % 5.1 % (0.0-3.0); HEMATOCRIT 31.9 % (42.0-52.0); HEMOGLOBIN 10.4 g/dl (13.5-17.5); LYMPH # 0.4 10^3/uL (1.5-5.0); LYMPH % 6.7 % (24.0-44.0); MEAN CORPUSCULAR HEMOGLOBIN 29.4 pg (27.0-33.0); MEAN CORPUSCULAR HGB CONC 32.6 g/dl (32.0-36.5); MEAN CORPUSCULAR VOLUME 90.1 fl (80.0-96.0); MONO % 18.1 % (2.0-8.0); NEUTROPHILS # 3.6 10^3/uL (1.5-8.5); PLATELET COUNT, AUTOMATED 285 10^3/uL (150-450); RED BLOOD COUNT 3.54 10^6/uL (4.30-6.10); WHITE BLOOD COUNT 5.3 10^3/uL (4.0-10.0)
[2021-02-06 07:08] LABS: ALBUMIN 1.9 GM/DL (3.2-5.2); BILIRUBIN,TOTAL 0.2 MG/DL (0.2-1.0); CALCIUM LEVEL 8.1 MG/DL (8.8-10.2); CREATININE FOR GFR 1.58 MG/DL (0.70-1.30); GLOMERULAR FILTRATION RATE 44.5 (>35); MAGNESIUM LEVEL 2.2 MG/DL (1.8-2.4); POTASSIUM SERUM 4.8 MEQ/L (3.5-5.1)
[2021-02-06] MEDS: SALIVA SUBSTITUTE(MOUTHKOTE) BTL MT SCH ×3 (09:40→18:29)
[2021-02-06] MEDS: LIDOCAINE 5% (LIDODERM) PATCH TD SCH (09:41)
[2021-02-06] MEDS: HEPARIN SOD (PORCINE) 5000UNITS/ML 1ML VIAL/SYRINGE SQ SCH (09:42)
[2021-02-06] MEDS: MIDODRINE 5 MG TAB PO SCH ×3 (09:42→15:59)
[2021-02-06] MEDS: ASPIRIN 81MG ENTERIC TABLET PO SCH (09:42)
[2021-02-06] MEDS: MAGNESIUM OXIDE 400MG TAB (MAG-OX) PO SCH (09:42)
[2021-02-06] MEDS: LACTOBACILLUS ACIDOPHILUS CAP (BACID) PO SCH ×2 (09:42→18:30)
[2021-02-06] MEDS: DOCUSATE SODIUM 100MG CAPSULE PO SCH ×2 (09:42→20:05)
--- NOTE | 2021-02-06 10:20 | CR.PDOC ---
General Date of Consultation: Feb 06, 2021 Referring Provider: CHAVA SOLITARIO DO Primary Care Physician: ALEX FINNEY MD @ Attending Physician: CHAVA SOLITARIO DO Consultation REASON FOR CONSULTATION/CHIEF COMPLAINT: Contacted by nic paynener regarding consultation for this unfortunate 85 year old with severe CKD and liver disease/cirrhosis/ascites. He has become increasinly weak and presented to the hospital for this reason and due to poor oral intake. He denies any pain, he stated he gets dyspneic when his ascites is increased but at this time he is not having this problem. He stated he thinks he is not doing very well and he does not think he will bounce back. He also stated his is "my eyes and ears" and that he could not really make medical decisions without input from her. HISTORY OF PRESENT ILLNESS: as above ALLERGIES: Please see below. HOME MEDICATIONS: Please see below. PAST MEDICAL HISTORY: 1. cirrhosis 2. CKD stage 4 3. gout 4 CAD 5. ANEMIA 6. MACULAR DEGENERATION 8. bph 9. DIVERTICULOSIS 10 hyperparathyroidism PAST SURGICAL HISTORY: 1. cataract ext FAMILY HISTORY: Father: COPD, DM Mother: old age SOCIAL HISTORY: Marital status and/or living arrangements: Tobacco use:former smoker ETOH: none REVIEW OF SYSTEMS: CONSTITUTIONAL: denies fevers chills. ++Fatigue and weakness HEENT: no dysphagia CARDIOVASCULAR: no palpations or chest pain. RESPIRATORY:dyspnea, no hemoptysis. GENITOURINARY:no dysuria. MUSCULOSKELETAL: denies any pain GASTROINTESTINAL: poor appetite, some abdominal discomfort improved after ascites tapped. SKIN: +bruising, dry skin NEUROLOGICAL: weakness PSYCHIATRIC: denies depression/anxiety PHYSICAL EXAMINATION: VITAL SIGNS: Please see below. GENERAL APPEARANCE: cachectic appearing male in no distress . HEENT: mucous membrances a bit dry RESPIRATORY: no dyspnea at rest CARDIOVASCULAR: RRR ABDOMEN: Tenderness no rebound or guarding, +BS EXTREMITIES: no edema or clubbing NEUROLOGICAL: weakness all 4 ext PSYCHIATRIC: affect blunted LABORATORY DATA: Please see below. ASSESSMENT/PLAN: 1. cirhosis/ascites in male with comorbid CKD. He does have HCP and DNR/DNI in place and does not want feeding tubes. We talked about my palliative care clinic; he does not think he could make appointments. He stated he does not think he will bounce back from this , but is not sure he wants to accept hospice at this point. I gave him a copy of 5 Wishes to review with his . Should they choose to try and have him seen in my clinic, they can contact my clinic for an appointment. He appears much more hospice appropriate in my clinical opinion. 2. weakness: likely multifactorial from poor po intake, anemia. I doubt there is much of anything that will improve this at this point in his life trajectory. Vital Signs/I&O Vital Signs Date Time Temp Pulse Resp B/P (MAP) Pulse Ox O2 Delivery O2 Flow Rate FiO2 02/06/21 06:00 97.0 67 18 116/54 (74) 96 Room Air I&O- Last 24 Hours up to 6 AM 02/06/21 06:00 Intake Total 480 ml Output Total 575 ml Balance -95 ml Laboratory Data Labs 24H Laboratory Tests 2 02/06/21 05:52: Urine Osmolality 486, Urine Random Creatinine 121.0, Urine Random Sodium 21 02/06/21 06:20: Immature Granulocyte % (Auto) 1.5, Neutrophils (%) (Auto) 68.0H, Lymphocytes (%) (Auto) 6.7L, Monocytes (%) (Auto) 18.1H, Eosinophils (%) (Auto) 5.1H, Basophils (%) (Auto) 0.6, Neutrophils # (Auto) 3.6, Lymphocytes # (Auto) 0.4L, Monocytes # (Auto) 1.0H, Eosinophils # (Auto) 0.3, Basophils # (Auto) 0.0, Nucleated Red Blood Cells % (auto) 0.0, Anion Gap 6L, Glomerular Filtration Rate 44.5, Calcium Level 8.1L, Magnesium Level 2.2, Total Bilirubin 0.2, Aspartate Amino Transf (AST/SGOT) 24, Alanine Aminotransferase (ALT/SGPT) 18, Alkaline Phosphatase 57, Total Protein 6.0L, Albumin 1.9L, Albumin/Globulin Ratio 0.5 CBC/BMP Laboratory Tests 02/06/21 06:20 Microbiology Microbiology 02/04/21 Stool Occult Blood (AL) - Final, Complete 02/03/21 Acid Fast Stain, Received Pending 02/03/21 Mycobacterial Culture, Received Pending 02/03/21 Fungal Smear, Received Pending 02/03/21 Fungal Culture, Received Pending 02/03/21 Gram Stain - Final, Complete 02/03/21 Anaerobic Culture - Final, Complete 02/03/21 Body Fluid Culture - Final, Complete 01/30/21 Fungal Smear, Received Pending 01/30/21 Fungal Culture, Received Pending 01/30/21 Anaerobic Culture - Final, Complete 01/30/21 Gram Stain - Final, Complete 01/30/21 Body Fluid Culture - Final, Complete 01/30/21 Blood Culture - Final, Complete NO GROWTH AFTER 5 DAYS 01/30/21 Urine Culture - Final, Complete Escherichia Coli 01/30/21 Blood Culture - Final, Complete NO GROWTH AFTER 5 DAYS Allergies Coded Allergies: No Known Allergies (Unverified , 08/26/20) Home Medications Scheduled Allopurinol (Allopurinol) 100 Mg Tablet, 100 MG PO QHS, (Reported) Ascorbic Acid (Ascorbic Acid) 500 Mg Tablet, 500 MG PO DAILY, (Reported) TAKES AT NOON Aspirin (Ecotrin) 81 Mg Tablet.dr, 81 MG PO DAILY, (Reported) Calcium Polycarbophil (Fibercon) 625 Mg Tablet, 1,250 MG PO DAILY, (Reported) Carvedilol (Carvedilol) 25 Mg Tablet, 12.5 MG PO BID, (Reported) Famotidine (Famotidine) 20 Mg Tablet, 20 MG PO BID, (Reported) TAKES AT NOON/HS Ferrous Gluconate (Ferrous Gluconate) 324 Mg Tablet, 324 MG PO DAILY, (Reported) TAKES AT NOON Furosemide (Furosemide) 20 Mg Tablet, 20 MG PO BID, (Reported) TAKES AM/NOON L.acidoph/L.bulg/B.bif/S.therm (Bacid Caplet) 1 Each Tablet, 1 TAB PO DAILY, (Reported) Magnesium Oxide (Magnesium Oxide) 400 Mg Tablet, 400 MG PO DAILY, (Reported) Vit C/E/Zn/Coppr/Lutein/Zeaxan (Preservision Areds 2 Softgel) 1 Each Capsule, 1 EACH PO BID, (Reported) TAKES AM/NOON Vitamin E (Dl,Tocopheryl Acet) (Vitamin E) 400 Unit Capsule, 400 UNIT PO DAILY, (Reported) TAKES AT NOON Michelle REYNA Feb 06, 2021 10:20
[2021-02-06] MEDS: FERROUS GLUCONATE 324 MG TAB PO SCH (12:40)
[2021-02-06] MEDS: FAMOTIDINE 20 MG TAB PO SCH ×2 (12:40→20:05)
--- NOTE | 2021-02-06 12:49 | IPN ---
PROGRESS NOTE DATE: 02/06/2021 SUBJECTIVE: Mr. Sarabia is seen this morning on his bedside. He is feeling about the same. He is weak and spends most of his day in the bed. He denies any nausea or vomiting. OBJECTIVE: VITAL SIGNS: Temperature is 97 degrees Fahrenheit, heart rate is 68 per minute and respiratory rate is 18 per minute. Blood pressure is 116/54 mmHg and oxygen saturation 96% on room air. HEAD AND NECK: Head is atraumatic. Neck is supple and without JVD or thyroid enlargement. HEART: His heart sounds and lungs are clear to auscultation. ABDOMEN: Soft and distended with ascites. It seems to be more full. Bowel sounds are present. EXTREMITIES: Without any cyanosis or clubbing. NEUROLOGIC: He is awake an at his baseline mentation. LABORATORY DATA: Today's labs showed a WBC count of 5.3, hemoglobin 10.4 and 31.9, platelets are 285,000. Sodium 128, potassium 4.8, CO2 24, BUN 32 and creatinine 1.58. Glucose is 74 and calcium is 8.1. Total protein 6.0 and albumin is down to 1.9. PROBLEMS: 1. Cirrhosis of liver with recurrent ascites. Patient seems to have increased ascites again. I will recommend to get paracentesis down prior to discharge. 2. Acute on chronic kidney disease. His kidney function is mostly stable. His kidney function really depends on renal perfusion. He does have slightly low blood pressure which might affect his kidney function particularly after paracentesis. No urgent need for dialysis. Patient is not a suitable candidate for long-term dialysis anyway. 3. Hyponatremia. This is related to cirrhosis of liver and recurrent ascites. Patient should remain on fluid restriction at 1500 ml per day. 4. Anemia, his anemia has been stable and does not need any urgent intervention. 5. Subacute bacterial peritonitis. Patient has been switched to oral antibiotic with Ciprofloxacin 500 mg daily. He is currently afebrile. 6. Disposition: From a renal standpoint, the patient can be discharged to home with home health aide and follow-up in the clinic as an outpatient.
[2021-02-06 14:00] VITALS: BP 90/51
--- NOTE | 2021-02-06 15:45 | IPNPDOC ---
Text Note Date of Service The patient was seen on 02/06/21. NOTE Subjective: No any acute events overnight. Patient denies fever, chills, nausea, vomiting. He complains of abdominal distention. Objective: GENERAL APPEARANCE: Cachectic male HEENT: no scleral icterus, no JVD, EOMI CARDIOVASCULAR: S1S2 LUNGS: Diminished lung sounds bilaterally ABDOMEN: soft & not tender w palpitation, moderately distended MUSCULOSKELETAL: no cyanosis, no swelling INTEGUMENT: no generalized pallor NEUROLOGICAL: cranial nerve function from 2-12 intact intact, follows commands, speech not dysarthric Assessment and plan Patient is an 85 year old male with cirrhosis and CKD stage 4 who presents with weakness and found to have poor oral intake, symptomatic anemia, and hyponatremia. Anemia Hemoglobin on admission low at 7.4 Stool for occult blood negative Status post 2 units of blood transfusion Hemoglobin stable today Liver cirrhosis/recurrent ascites S/P paracentesis on 01/30/2021. 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 IR paracentesis placed Hyponatremia cortisol a.m. with a normal limit TSH within normal limit Continue with fluid restriction Nephrology team follows him Hypotension Midodrine 3 times a day Cachexia/Poor oral intake BMI 18.4 Temporal wasting Reduced muscle mass Ensure Meeting Manager assessment Large left pleural effusion Echo on 01/31/2021 demonstrate EF 60% 900mL of exudative fluid removed. Pathology report: Enlarged and reactive mesothelial cells, admixed with macrophages. If clinical suspicion of a neoplastic process/mesothelioma exists, follow up and or additional biopsies may be helpful. Will repeat x-ray today Deconditioning/failure to thrive PT/OT Palliative care consult Acute on chronic kidney injury Stable Patient was diagnosed with CKD stage 4 Creatinine in 10/2020 was 1.7 Severe protein calorie malnutrition BMI 19.6, temporal wasting Low albumin Ensure Gout Continue with allopurinol UTI Urine culture positive for Escherichia coli Patient received treatment with ceftriaxone with positive effect VS,Fishbone, I+O VS, Fishbone, I+O Laboratory Tests 02/06/21 06:20 Vital Signs Date Time Temp Pulse Resp B/P (MAP) Pulse Ox O2 Delivery O2 Flow Rate FiO2 02/06/21 14:00 97.3 70 16 90/51 (64) 98 Room Air I&O- Last 24 Hours up to 6 AM 02/06/21 06:00 Intake Total 480 ml Output Total 575 ml Balance -95 ml CHAVA SOLITARIO DO Feb 06, 2021 15:45
--- NOTE | 2021-02-06 16:15 | REP ---
INDICATION: pleural effusion. COMPARISON: 02/04/2021. TECHNIQUE: SINGLE PORTABLE AP VIEW OF THE CHEST WAS PERFORMED. FINDINGS: Left basilar infiltrate and effusion appears centrally unchanged. Right lung is unchanged in appearance with no new infiltrate. The heart does not appear to be significantly enlarged. The mediastinal silhouette is unchanged with calcification of the thoracic aorta. IMPRESSION: Stable exam. <Electronically signed by Edmar Corral > 02/06/21 1046
[2021-02-06] MEDS: TAMSULOSIN 0.4 MG CAP PO SCH (20:05)
[2021-02-06] MEDS: **NOTE PATIENT COMMENT** MISC XX SCH (20:05)
[2021-02-06] MEDS: allopurinoL 100 MG TAB PO SCH (20:05)
[2021-02-06 22:00] VITALS: BP 125/65
[2021-02-07] MEDS: CIPROFLOXACIN 500MG TABLET PO SCH (05:20)
[2021-02-07 06:00] VITALS: BP 110/62
[2021-02-07 07:04] LABS: BASO % 0.9 % (0.0-1.0); EOS # 0.3 10^3/uL (0.0-0.5); EOS % 6.6 % (0.0-3.0); HEMOGLOBIN 9.7 g/dl (13.5-17.5); LYMPH # 0.3 10^3/uL (1.5-5.0); LYMPH % 7.8 % (24.0-44.0); MEAN CORPUSCULAR HEMOGLOBIN 28.6 pg (27.0-33.0); MEAN CORPUSCULAR HGB CONC 32.3 g/dl (32.0-36.5); MEAN CORPUSCULAR VOLUME 88.5 fl (80.0-96.0); MONO # 0.8 10^3/uL (0.0-0.8); MONO % 18.8 % (2.0-8.0); NEUTROPHILS # 2.8 10^3/uL (1.5-8.5); NEUTROPHILS % 64.7 % (36.0-66.0); PLATELET COUNT, AUTOMATED 289 10^3/uL (150-450); RED BLOOD COUNT 3.39 10^6/uL (4.30-6.10); WHITE BLOOD COUNT 4.3 10^3/uL (4.0-10.0)
[2021-02-07 07:36] LABS: ALBUMIN 1.9 GM/DL (3.2-5.2); BILIRUBIN,TOTAL 0.3 MG/DL (0.2-1.0); CALCIUM LEVEL 7.7 MG/DL (8.8-10.2); CREATININE FOR GFR 1.47 MG/DL (0.70-1.30); GLOMERULAR FILTRATION RATE 48.4 (>35); MAGNESIUM LEVEL 2.2 MG/DL (1.8-2.4); TOTAL PROTEIN 5.6 GM/DL (6.4-8.2)
[2021-02-07] MEDS: LACTOBACILLUS ACIDOPHILUS CAP (BACID) PO SCH (08:36)
[2021-02-07] MEDS: DOCUSATE SODIUM 100MG CAPSULE PO SCH (08:36)
[2021-02-07] MEDS: ASPIRIN 81MG ENTERIC TABLET PO SCH (08:37)
[2021-02-07] MEDS: MAGNESIUM OXIDE 400MG TAB (MAG-OX) PO SCH (08:37)
[2021-02-07] MEDS: MIDODRINE 5 MG TAB PO SCH ×3 (08:38→16:55)
[2021-02-07] MEDS: SALIVA SUBSTITUTE(MOUTHKOTE) BTL MT SCH ×2 (08:38→14:43)
[2021-02-07] MEDS: LIDOCAINE 5% (LIDODERM) PATCH TD SCH (08:39)
[2021-02-07] MEDS: FAMOTIDINE 20 MG TAB PO SCH (12:00)
[2021-02-07] MEDS ORDERED: LIDOCAINE 1% MDV 20ML VIAL As Ordered ONE (12:38)
[2021-02-07] MEDS ORDERED: SODIUM BICARBONATE 8.4% INJ 50MEQ 50 ML VIAL As Ordered ONE (12:38)
[2021-02-07 14:00] VITALS: BP 113/58
[2021-02-07 14:02] VITALS: BP 138/66
[2021-02-07] MEDS ORDERED: CIPR-249 PO (15:02)
[2021-02-07] MEDS ORDERED: FLOM0.4C39 PO (15:02)
[2021-02-07] MEDS ORDERED: MIDO5TA PO (15:02)
[2021-02-07] MEDS ORDERED: DOK1CAP7 PO (15:02)
[2021-02-07 15:10] LABS: APPEARANCE, BODY FLUID CLOUDY (CLEAR); PERITONEAL FL COLOR PALE YELLOW (COLORLESS); SOURCE, BODY FLUID PERITONEAL
[2021-02-07 15:14] LABS: SPEC. GRAVITY BODY FLUIDS 1.019 (NOT ESTABLISHED)
[2021-02-07 15:49] LABS: SOURCE, BODY FLUID ALBUMIN PERINEAL; SOURCE, BODY FLUID GLUCOSE PERITONEAL; SOURCE, BODY FLUID TOT PROTEIN PERITONEAL; TOTAL PROTEIN, BODY FLUID 2.6 G/DL (NOT ESTABLISHED)
--- NOTE | 2021-02-07 16:41 | IPN ---
PROGRESS NOTE DATE: 02/07/2021 Mr. Sarabia is seen this morning on his bedside. He is feeling well and denies any new complaints. He does have abdominal distention due to ascites. Yesterday paracentesis could not be performed, and he is likely to have it done today. Patient denies any dyspnea, chest pain, nausea, or vomiting. PHYSICAL EXAMINATION: Temperature 98.3 degrees Fahrenheit, heart rate 68 per minute, respiratory rate 20 per minute, blood pressure 110/62 mmHg, and oxygen saturation 99% on room air. Head is atraumatic. Neck supple and without jugular venous distention (JVD) or thyroid enlargement. Heart sounds are regular and lungs clear with diminished breath sounds on left side. Abdomen is distended with ascites, soft and nontender. Bowel sounds are normal. Extremities without any cyanosis or clubbing. PROBLEMS: 1. Acute kidney injury superimposed on chronic kidney disease. Kidney function is stable at about baseline. His electrolytes are also stable. 2. Hyponatremia. Patient has chronic hyponatremia related to cirrhosis liver. Sodium level has been unchanged between 128-130. He should continue with fluid restriction of 1500 mL per day. 3. Cirrhosis of liver with recurrent ascites. Patient is in need for another paracentesis. He is likely to require intermittent paracentesis every couple of weeks. This can be done as an outpatient. 4. Anemia. His anemia has been stable and does not need any specific intervention at this point. DISPOSITION: From a renal standpoint, patient can be discharged to home if he stable after paracentesis today.
[2021-02-07] MEDS: FERROUS GLUCONATE 324 MG TAB PO SCH (16:55)
--- NOTE | 2021-02-07 18:06 | REP ---
INDICATION: Paracentesis The patient has a history of ascites COMPARISON: None. TECHNIQUE: The procedure was performed by DAVID Padilla, under the direct supervision of Dr. Corral The risks and benefits of the procedure were explained to the patient and an informed consent was obtained both verbally and written. Directly prior to the start of the procedure a formal time-out was completed in the procedure room. The largest pocket of fluid was localized in the left lower quadrant using ultrasound guidance. The skin was prepped and draped in a sterile fashion. Ten ML of buffered lidocaine was used as a local anesthetic. An 8-Slovak multi side-hole catheter was inserted using trocar technique. 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 The patient tolerated the procedure well and there were no immediate complications. After the appropriate amount of monitored convalescence, the patient was discharged from the department. 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 <Electronically signed by Mariel Medina > 02/07/21 1612 <Electronically signed by Edmar Corral > 02/07/21 1802
--- NOTE | 2021-02-07 18:27 | DS.PDOC ---
Discharge Summary General Date of Admission Jan 30, 2021 at 16:50 Date of Discharge 02/07/21 Discharge Summary PROCEDURES PERFORMED DURING STAY: [None]. ADMITTING DIAGNOSES: Anemia Liver cirrhosis/recurrent ascites UTI Hyponatremia Hypotension Large left pleural effusion Cachexia/Poor oral intake Deconditioning/failure to thrive Acute on chronic kidney injury Gout DISCHARGE DIAGNOSES: Anemia Liver cirrhosis/recurrent ascites UTI Hyponatremia Hypotension Large left pleural effusion Cachexia/Poor oral intake Deconditioning/failure to thrive Acute on chronic kidney injury Gout COMPLICATIONS/CHIEF COMPLAINT: Failure To Thrive,Hypoglycemia,Hyponatremia/Weakne. HISTORY OF PRESENT ILLNESS: Mr. Del Rosario is an 85 year old male with cirrhosis and CKD stage 4 who presents with weakness. The past few weeks, patient has had a poor appetite, but has acutely worsened in the past few days. reports that he would eat cornflakes and fruit for breakfast, but would not eat anything else for the rest of the day. Due to his poor oral intake, he also has had increased weakness. Yesterday, he was walking with the cane, and tripped. He denies lightheadedness/dizziness, chest pain, or dyspnea. Denies hematemesis, hematochezia, melena, or hematuria. His last bowel movement was 2 days ago. He fell and could not stand up. He was lifted up into a chair that evening. The next day, he still couldn't get up from the chair and was brought into the ED. In the ED, he was noted to have ascites and large left pleural effusion. He was sent for paracentesis where they drained 6.25L. He felt that his breathing imp roved after the paracentesis. Otherwise, work up was significant for anemia of 7.4 which may have contributed to his weakness. He is also very pale. Patient consented to blood products and being transfused with 1u pRBC. Patient will be admitted for symptomatic anemia, hyponatremia, and failure to thrive. HOSPITAL COURSE: During hospital stay following issues addressed Anemia Hemoglobin on admission low at 7.4 Stool for occult blood negative Status post 2 units of blood transfusion Hemoglobin stable today Liver cirrhosis/recurrent ascites S/P paracentesis on 01/30/2021. PMN <250 Patient has a high risk of SBP Child Mendoza score class B indicates assisted antibiotic prophylaxis Ciprofloxacin 500 by mouth daily Prognosis poor Nephrology team did not recommend diuresis due to high risk of dehydration Today, paracentesis was done, > 3 L of fluid was evacuated He is likely to require intermittent paracentesis every couple of weeks Hyponatremia cortisol a.m. with a normal limit TSH within normal limit Patient has chronic hyponatremia related to cirrhosis liver. Sodium level has been unchanged between 128-130. He should continue with fluid restriction of 1500 mL per day. Hypotension Midodrine 3 times a day Cachexia/Poor oral intake BMI 18.4 Temporal wasting Reduced muscle mass Ensure Ip Counsel assessment Large left pleural effusion Echo on 01/31/2021 demonstrate EF 60% 900mL of exudative fluid removed. Pathology report: Enlarged and reactive mesothelial cells, admixed with macrophages. If clinical suspicion of a neoplastic process/mesothelioma exists, follow up and or additional biopsies may be helpful. Deconditioning/failure to thrive PT/OT Palliative care consult Acute on chronic kidney injury Stable Patient was diagnosed with CKD stage 4 Creatinine in 10/2020 was 1.7 Continue with allopurinol DISCHARGE MEDICATIONS: Please see below. ALLERGIES: Please see below. PHYSICAL EXAMINATION ON DISCHARGE: VITAL SIGNS: Please see below. GENERAL APPEARANCE: Cachectic male HEENT: no scleral icterus, no JVD, EOMI CARDIOVASCULAR: S1S2 LUNGS: Diminished lung sounds bilaterally ABDOMEN: soft & not tender w palpitation, moderately distended MUSCULOSKELETAL: no cyanosis, no swelling INTEGUMENT: no generalized pallor NEUROLOGICAL: cranial nerve function from 2-12 intact intact, follows commands, speech not dysarthric LABORATORY DATA: Please see below. IMAGING: [facility] NAME: DONALDO DEL ROSARIO DATE OF : 1935 AGE: 85 SEX: M REPORT #: [id number] ROOM: ED TECHNOLOGIST: KIRSTEN DOCTOR: CELESTINA SWENSON MD Ordered for Date&Time: 01/30/21 1103 cc: [~ rep ct ivnm] Service Date&Time: This report is in Signed status. If this report is in a DRAFT status it has not yet been reviewed by the radiologist for accuracy. Thank you for having your radiology procedures performed at [facility] RADIOLOGY REPORT Date&Time printed: [~ rep prt dt last] [~ rep prt tm last] Page 2 of [address] [address] RADIOLOGY REPORT This report is in Signed status. If this report is in a DRAFT status it has not yet been reviewed by the radiologist for accuracy. Thank you for having your radiology procedures performed at [facility] RADIOLOGY REPORT Date&Time printed: [~ rep prt dt last] [~ rep prt tm last] Page 1 of 2 COMPARISON: Abdomen/pelvis CT dated 10/01/2020. TECHNIQUE: The study is performed without IV or bowel contrast. FINDINGS: Within the visualized lower lung mendoza there is a large left pleural effusion. This is similar to the comparison study. There is a large volume of ascites throughout the abdomen and pelvis, similar to the prior study. The hepatic margin appears mildly nodular suggestive of cirrhosis. This should be correlated clinically. The liver appears to be diffusely decreased in size. This is unchanged. The gallbladder and pancreas are unchanged. Spleen appears normal size and unchanged. The adrenals are unremarkable. The unenhanced kidneys demonstrate no hydronephrosis or calculus. There are a few renal cortical cysts bilaterally. These are not significantly changed. There is mild bilateral perinephric stranding, not unusual for patient age. The abdominal aorta is unremarkable except for calcified atheroma occasional. There are a few nonenlarged periaortic nodes. There is no bowel distention or obstruction. There are numerous mesenteric calcifications a similar to the prior study. This may be sequela of prior mesenteric inflammation. Pelvis: Large volume of ascites throughout the pelvis. The pelvic bowel loops are unremarkable. The bladder is unremarkable. And IMPRESSION: Large volume ascites throughout the abdomen and pelvis as previously. Stable a mesenteric calcifications as previously, possibly from previous mesenteric inflammation. The liver is small size and the margin is mildly nodular compatible with cirrhosis. Large left pleural effusion. No bowel distention or obstruction. No hydronephrosis or renal calculus. There are a few small renal cysts, unchanged. <Electronically signed by Edmar Alba > 01/30/21 1238 DD: Edmar Alba MD 01/30/21 1226 DT: JENNY 01/30/21 1238 DS: ART 01/30/21 1226 01/30/21 1226 [~ rep ct labl] PROGNOSIS: Guarded ACTIVITY: [As tolerated]. DIET: Regular with Ensure DISPOSITION: 01 Home, Self-Care. ITEMS TO FOLLOWUP ON ON OUTPATIENT: Follow-up with PCP in 3-5 days, palliative care, GI team in 2 weeks. IR paracentesis every 7 days in the outpatient settings Follow-up with food and beverage service manager next week Fluid restriction to 1500 mL DISCHARGE CONDITION: [Stable]. TIME SPENT ON DISCHARGE:40 minutes. Vital Signs/I&Os Vital Signs Date Time Temp Pulse Resp B/P (MAP) Pulse Ox O2 Delivery O2 Flow Rate FiO2 02/07/21 14:02 64 20 100 Room Air 02/07/21 12:37 98.3 02/07/21 06:00 110/62 (78) I&O- Last 24 Hours up to 6 AM 02/07/21 06:00 Intake Total 1040 ml Output Total 150 ml Balance 890 ml Laboratory Data Labs 24H Laboratory Tests 2 02/07/21 06:24: Immature Granulocyte % (Auto) 1.2, Neutrophils (%) (Auto) 64.7, Lymphocytes (%) (Auto) 7.8L, Monocytes (%) (Auto) 18.8H, Eosinophils (%) (Auto) 6.6H, Basophils (%) (Auto) 0.9, Neutrophils # (Auto) 2.8, Lymphocytes # (Auto) 0.3L, Monocytes # (Auto) 0.8, Eosinophils # (Auto) 0.3, Basophils # (Auto) 0.0, Nucleated Red Blood Cells % (auto) 0.0, Anion Gap 5L, Glomerular Filtration Rate 48.4, Calcium Level 7.7L, Magnesium Level 2.2, Total Bilirubin 0.3, Aspartate Amino Transf (AST/SGOT) 21, Alanine Aminotransferase (ALT/SGPT) 19, Alkaline Phosphatase 63, Total Protein 5.6L, Albumin 1.9L, Albumin/Globulin Ratio 0.5 CBC/BMP Laboratory Tests 02/07/21 06:24 Microbiology Microbiology 02/06/21 Acid Fast Stain, Received Pending 02/06/21 Mycobacterial Culture, Received Pending 02/06/21 Fungal Smear, Received Pending 02/06/21 Fungal Culture, Received Pending 02/06/21 Gram Stain, Received Pending 02/06/21 Body Fluid Culture, Received Pending 02/06/21 Anaerobic Culture, Received Pending 02/04/21 Stool Occult Blood (AL) - Final, Complete 02/03/21 Acid Fast Stain, Received Pending 02/03/21 Mycobacterial Culture, Received Pending 02/03/21 Fungal Smear, Received Pending 02/03/21 Fungal Culture, Received Pending 02/03/21 Gram Stain - Final, Complete 02/03/21 Anaerobic Culture - Final, Complete 02/03/21 Body Fluid Culture - Final, Complete 01/30/21 Fungal Smear, Received Pending 01/30/21 Fungal Culture, Received Pending 01/30/21 Anaerobic Culture - Final, Complete 01/30/21 Gram Stain - Final, Complete 01/30/21 Body Fluid Culture - Final, Complete 01/30/21 Blood Culture - Final, Complete NO GROWTH AFTER 5 DAYS 01/30/21 Urine Culture - Final, Complete Escherichia Coli 01/30/21 Blood Culture - Final, Complete NO GROWTH AFTER 5 DAYS Discharge Medications Scheduled Allopurinol (Allopurinol) 100 Mg Tablet, 100 MG PO QHS, (Reported) Ascorbic Acid (Ascorbic Acid) 500 Mg Tablet, 500 MG PO DAILY, (Reported) TAKES AT NOON Aspirin (Ecotrin) 81 Mg Tablet.dr, 81 MG PO DAILY, (Reported) Calcium Polycarbophil (Fibercon) 625 Mg Tablet, 1,250 MG PO DAILY, (Reported) Carvedilol (Carvedilol) 25 Mg Tablet, 12.5 MG PO BID, (Reported) Ciprofloxacin HCl (Cipro) 500 Mg Tablet, 500 MG PO DAILY@06 Famotidine (Famotidine) 20 Mg Tablet, 20 MG PO BID, (Reported) TAKES AT NOON/HS Ferrous Gluconate (Ferrous Gluconate) 324 Mg Tablet, 324 MG PO DAILY, (Reported) TAKES AT NOON Furosemide (Furosemide) 20 Mg Tablet, 20 MG PO BID, (Reported) TAKES AM/NOON L.acidoph/L.bulg/B.bif/S.therm (Bacid Caplet) 1 Each Tablet, 1 TAB PO DAILY, (Reported) Magnesium Oxide (Magnesium Oxide) 400 Mg Tablet, 400 MG PO DAILY, (Reported) Midodrine HCl (Midodrine HCl) 5 Mg Tablet, 10 MG PO 08,12,16 Tamsulosin HCl (Flomax) 0.4 Mg Capsule, 0.4 MG PO QHS Vit C/E/Zn/Coppr/Lutein/Zeaxan (Preservision Areds 2 Softgel) 1 Each Capsule, 1 EACH PO BID, (Reported) TAKES AM/NOON Vitamin E (Dl,Tocopheryl Acet) (Vitamin E) 400 Unit Capsule, 400 UNIT PO DAILY, (Reported) TAKES AT NOON Scheduled PRN Docusate Sodium (Dok) 100 Mg Capsule, 100 MG PO BID PRN for constipation Allergies Coded Allergies: No Known Allergies (Unverified , 08/26/20) CHAVA SOLITARIO DO Feb 07, 2021 18:27
== END 2021-02-07 17:56 | disposition home or self-care (01) | DRG 811 ==
LOC: EDBD 10:11 → M ED 10:11 → M ED INP 16:50 → ENRESERV 19:05 → M PCU 20:04 → M MSPAV 02-01 13:39
PROVIDERS: ADMIT Internal Medicine; ATTEND Internal Medicine
PROC: 30233N1 Transfusion of Nonautologous Red Blood Cells into Peripheral Vein, Percutaneous Approach (ICD-10-PCS; 2021-01-30)
PROC: 30233J1 Transfusion of Nonautologous Serum Albumin into Peripheral Vein, Percutaneous Approach (ICD-10-PCS; 2021-01-30)
PROC: 0W9G3ZX Drainage of Peritoneal Cavity, Percutaneous Approach, Diagnostic (ICD-10-PCS; principal; 2021-01-30 14:00)
PROC: 0W9B3ZX Drainage of Left Pleural Cavity, Percutaneous Approach, Diagnostic (ICD-10-PCS; 2021-02-03)
PROC: 0W9G3ZZ Drainage of Peritoneal Cavity, Percutaneous Approach (ICD-10-PCS; 2021-02-07)
DX: D64.89 Other specified anemias (principal); K65.2 Spontaneous bacterial peritonitis; N18.4 Chronic kidney disease, stage 4 (severe); N25.81 Secondary hyperparathyroidism of renal origin; E87.1 Hypo-osmolality and hyponatremia; J90 Pleural effusion, not elsewhere classified; N17.9 Acute kidney failure, unspecified; E46 Unspecified protein-calorie malnutrition; Z68.1 Body mass index [BMI] 19.9 or less, adult; R64 Cachexia; N39.0 Urinary tract infection, site not specified; Z66 Do not resuscitate; B96.20 Unspecified Escherichia coli [E. coli] as the cause of diseases classified elsewhere; R62.7 Adult failure to thrive; K70.31 Alcoholic cirrhosis of liver with ascites; R53.1 Weakness; R63.0 Anorexia; I12.9 Hypertensive chronic kidney disease with stage 1 through stage 4 chronic kidney disease, or unspecified chronic kidney disease; E16.2 Hypoglycemia, unspecified; M10.9 Gout, unspecified; E78.00 Pure hypercholesterolemia, unspecified; D63.1 Anemia in chronic kidney disease; H91.93 Unspecified hearing loss, bilateral; K59.00 Constipation, unspecified; I95.9 Hypotension, unspecified; R68.2 Dry mouth, unspecified; I25.10 Atherosclerotic heart disease of native coronary artery without angina pectoris; H35.30 Unspecified macular degeneration; N40.0 Benign prostatic hyperplasia without lower urinary tract symptoms; Z98.49 Cataract extraction status, unspecified eye; Z20.822 Contact with and (suspected) exposure to COVID-19; Z79.82 Long term (current) use of aspirin; Z79.899 Other long term (current) drug therapy; Z87.891 Personal history of nicotine dependence

== ENCOUNTER 2021-02-17 11:35 | Inpatient (IN) | payer MEDICARE, OTHER ==
[~2021-02-17] VITALS: Ht 180.3 cm; Wt 56.0 kg
[~2021-02-17 11:35] MED LIST changes: +ASCO500T PO; +CIPR-249 PO; +DOK1CAP7 PO; +FERR32TA PO; +FIBE625T PO; +FLOM0.4C39 PO; +FURO20TA2 PO; +MAGN400T3 PO; +MIDO5TA PO; +PRES10CA2 PO
[2021-02-17 12:39] LABS: BASO # 0.1 10^3/uL (0.0-0.2); BASO % 0.5 % (0.0-1.0); EOS # 0.1 10^3/uL (0.0-0.5); EOS % 0.3 % (0.0-3.0); HEMATOCRIT 35.5 % (42.0-52.0); HEMOGLOBIN 11.3 g/dl (13.5-17.5); LYMPH # 0.3 10^3/uL (1.5-5.0); LYMPH % 1.8 % (24.0-44.0); MEAN CORPUSCULAR HEMOGLOBIN 28.8 pg (27.0-33.0); MEAN CORPUSCULAR HGB CONC 31.8 g/dl (32.0-36.5); MEAN CORPUSCULAR VOLUME 90.6 fl (80.0-96.0); MONO # 1.2 10^3/uL (0.0-0.8); MONO % 6.7 % (2.0-8.0); NEUTROPHILS # 16.6 10^3/uL (1.5-8.5); NEUTROPHILS % 89.8 % (36.0-66.0); PLATELET COUNT, AUTOMATED 393 10^3/uL (150-450); RED BLOOD COUNT 3.92 10^6/uL (4.30-6.10); WHITE BLOOD COUNT 18.5 10^3/uL (4.0-10.0)
--- NOTE | 2021-02-17 12:52 | REP ---
INDICATION: DYSPNEA/COUGH. COMPARISON: 02/06/2021. TECHNIQUE: SINGLE PORTABLE AP VIEW OF THE CHEST WAS PERFORMED. FINDINGS: There is mild streaky infiltrate the right lung base. There is increased infiltrate in the left lung base. There is a small left pleural effusion unchanged. Heart mediastinum are unchanged. IMPRESSION: New mild streaky infiltrate right lung base. Increased infiltrate left lung base. Small left pleural effusion unchanged. <Electronically signed by Edmar Corral > 02/17/21 [id number]
[2021-02-17 13:06] LABS: BILIRUBIN,DIRECT 0.1 MG/DL (0.0-0.2); BILIRUBIN,TOTAL 0.3 MG/DL (0.2-1.0); CALCIUM LEVEL 8.3 MG/DL (8.8-10.2); CREATININE FOR GFR 1.92 MG/DL (0.70-1.30); GLOMERULAR FILTRATION RATE 35.5 (>35); POTASSIUM SERUM 5.8 MEQ/L (3.5-5.1); TOTAL PROTEIN 6.2 GM/DL (6.4-8.2)
[2021-02-17 13:37] LABS: INR 1.05; PROTHROMBIN TIME 13.9 SECONDS (12.5-14.3)
[2021-02-17 13:38] LABS: PARTIAL THROMBOPLASTIN TIME 35.4 SECONDS (24.2-38.5)
--- NOTE | 2021-02-17 14:16 | REP ---
INDICATION: shortness of breath. COMPARISON: 01/30/2021 TECHNIQUE: Noncontrast enhanced helical technique FINDINGS: The mediastinum and pulmonary dhaval are essentially unchanged. There is a large left pleural effusion status quo. Evaluation of the lung mendoza shows patchy bilateral basilar opacities and patchy bilateral upper lobe opacities all representing a change from the prior exam. Scattered left lower lobe air bronchograms are also noted. There is intra fissural fluid on the left status quo. There is a pericardial effusion which is also unchanged. There is no change in the osseous structures. IMPRESSION: 1. Large left pleural effusion unchanged. 2. New bilateral patchy lung field opacities as described above suspicious for patchy pneumonia. 3. Persistent pericardial effusion. 4. Other findings as described above. <Electronically signed by Johnny Garcia > 02/17/21 [id number]
--- NOTE | 2021-02-17 14:20 | REP ---
INDICATION: ascites, infiltrate. COMPARISON: 01/30/2021 TECHNIQUE: No intravenous contrast or oral bowel preparatory contrast was administered prior to the exam. FINDINGS: There is a large degree of ascites which is unchanged. The liver is small with a nodular surface status quo. The gallbladder, spleen, pancreas, adrenal glands, and kidneys are unchanged. The abdominal aorta and para-regions are unchanged. Scattered mesenteric calcifications are again noted unchanged. There is no evidence of free air. There is no significant change in appearance of the bowel loops. IMPRESSION: No significant change from the prior exam. Findings as described above and previously. <Electronically signed by Johnny Garcia > 02/17/21 1932
[2021-02-17] MEDS ORDERED: MIDODRINE 5 MG TAB PO SCH (16:00)
[2021-02-17 16:50] LABS: SPEC. GRAVITY BODY FLUIDS 1.021 (NOT ESTABLISHED)
[2021-02-17] MEDS ORDERED: cefTRIAXone SOD 2 GM in D5W MINI-BAG PLUS 50 ML IV ONE (16:50)
[2021-02-17 17:19] LABS: APPEARANCE, BODY FLUID CLOUDY (CLEAR); PERITONEAL FL COLOR YELLOW (COLORLESS); SOURCE, BODY FLUID PERITONEAL
--- NOTE | 2021-02-17 17:23 | REP ---
INDICATION: paracentesis,abdominal distended/sob, diagnostic/therapeutic. COMPARISON: None. TECHNIQUE: The procedure was performed under the direct supervision of Dr. Corral. The risks and benefits of the procedure were explained to the patient and informed consent was obtained. The largest pocket of fluid was localized in the left flank using ultrasound guidance. The skin was prepped and draped in a sterile fashion. 1% lidocaine was used as a local anesthetic. An 8-Stateless multi side-hole catheter was inserted using trocar technique.3700 cc of chylous fluid was withdrawn with a sample sent to the lab for analysis. The patient tolerated the procedure well and there were no immediate complications. After the appropriate amount of monitored convalescence, the patient was discharged from the department. FINDINGS: None IMPRESSION: Ultrasound-guided paracentesis [id number] cc of chylous fluid. <Electronically signed by Richy Baez > 02/17/21 1628 <Electronically signed by Edmar Corral > 02/17/21 [id number]
[2021-02-17 17:47] LABS: SOURCE, BODY FLUID ALBUMIN PERITONEAL; SOURCE, BODY FLUID GLUCOSE PERITONEAL; SOURCE, BODY FLUID TOT PROTEIN PERITONEAL; TOTAL PROTEIN, BODY FLUID 2.5 G/DL (NOT ESTABLISHED)
[2021-02-17 18:23] LABS: RSV AMPLIFICATION NEGATIVE (NEGATIVE)
[2021-02-17] MEDS ORDERED: SOD POLYSTYRENE SULFONATE SUSP 15 GM/60 ML UD PO ONE (18:25)
[2021-02-17] MEDS ORDERED: COLA100C5 PO (18:31)
[2021-02-17] MEDS ORDERED: FLOM0.4C39 PO (18:31)
[2021-02-17] MEDS ORDERED: CIPR500T39 PO (18:31)
[2021-02-17] MEDS ORDERED: MIDO5TA PO (18:31)
--- NOTE | 2021-02-17 19:27 | HPEPDOC ---
General Date of Admission Feb 17, 2021 Date of Service: Feb 17, 2021 Chief Complaint The patient is a 85-year-old male admitted with a reason for visit of SOB. Source: Patient, Family History of Present Illness Mr. Sarabia is a 85 year old male with cirrhosis and CKD stage 4 who presents with dyspnea and cough. He was recently admitted and discharged on 01/30/2021 to 02/07/2021 for weakness and failure to thrive. When he was home, he mostly rested. He ate small meals, but as the week progressed, he ate less and less. He did not feel well this morning. He woke up feeling short of breath with dry cough. His abdomen became very distended and he came into the ED. Prior to the paracentesis, his blood pressures were stable. He did have tachycardia or fever. After paracentesis, his SBP was in the 80s to 90s. No tachycardia or fever. He appears very thin and cachetic. Abdomen not distended, but does have tenderness due to paracentesis. Lungs are diminished on left side Work up in the ED was significant for leukocytosis of 18.5 and hyperkalemia of 5.8. He does have a mild elevation of creatinine from 1.[address] chest demonstrated large left pleural effusion that's unchanged and new opacities suspicious for bilateral pneumonia. During paracentesis, they withdrew 3.7CC of chylous fluid. Patient will be admitted for pneumonia and possible SBP Home Medications Scheduled Allopurinol (Allopurinol) 100 Mg Tablet, 100 MG PO QHS, (Reported) Ascorbic Acid (Ascorbic Acid) 500 Mg Tablet, 500 MG PO DAILY, (Reported) TAKES AT NOON Aspirin (Ecotrin) 81 Mg Tablet.dr, 81 MG PO DAILY, (Reported) Calcium Polycarbophil (Fibercon) 625 Mg Tablet, 1,250 MG PO DAILY, (Reported) Carvedilol (Carvedilol) 25 Mg Tablet, 12.5 MG PO BID, (Reported) Ciprofloxacin HCl (Ciprofloxacin HCl) 500 Mg Tablet, 500 MG PO DAILY, (Reported) Famotidine (Famotidine) 20 Mg Tablet, 20 MG PO BID, (Reported) TAKES AT NOON/HS Ferrous Gluconate (Ferrous Gluconate) 324 Mg Tablet, 324 MG PO DAILY, (Reported) TAKES AT NOON Furosemide (Furosemide) 20 Mg Tablet, 20 MG PO BID, (Reported) TAKES AM/NOON L.acidoph/L.bulg/B.bif/S.therm (Bacid Caplet) 1 Each Tablet, 1 TAB PO DAILY, (Reported) Magnesium Oxide (Magnesium Oxide) 400 Mg Tablet, 400 MG PO DAILY, (Reported) Midodrine HCl (Midodrine HCl) 5 Mg Tablet, 5 MG PO TID, (Reported) 0800, 1200, 1600 Tamsulosin HCl (Flomax) 0.4 Mg Capsule, 0.4 MG PO QHS, (Reported) Vit C/E/Zn/Coppr/Lutein/Zeaxan (Preservision Areds 2 Softgel) 1 Each Capsule, 1 EACH PO BID, (Reported) TAKES AM/NOON Vitamin E (Dl,Tocopheryl Acet) (Vitamin E) 400 Unit Capsule, 400 UNIT PO DAILY, (Reported) TAKES AT NOON Scheduled PRN Docusate Sodium (Colace) 100 Mg Capsule, 100 MG PO BID PRN for CONSTIPATION, (Reported) Allergies Coded Allergies: No Known Allergies (Unverified , 08/26/20) Past Medical History Medical History 1. Gout 2. Hypercholesterolemia 3. Hypertension 4. CKD stage 4 5. CAD 6. Anemia of chronic disease 7. Macular degenration 8. BPH 9. Diverticulosis 10. Hyperparathyroidism Surgical History 1. Cataract removal Family History Father: due to emphysema, history of diabetes Mother: due to natural causes. Denies knowing mother's PMH Social History * Smoker: former Smoker Alcohol: Denies Drugs: denies A-FIB/CHADSVASC A-FIB History Current/History of A-Fib/PAF?: No Review of Systems Constitutional: Reports: Malaise; Denies: Chills, Fever Eyes: Denies: Vision change ENT: Reports: Other Symptoms (dry mouth) Skin: Denies: Rash Pulmonary: Reports: Dyspnea, Cough Cardiovascular: Denies: Chest Pain Gastrointestinal: Reports: Other Symptoms (Poor appetite, swelling in abdomen); Denies: Abdominal Pain Genitourinary: Denies: Dysuria Hematologic: Denies: Bruising Neurological: Denies: Numbness Psych: Denies: Anxiety, Depression Physical Examination General Exam: Positive: Alert, Cooperative Eye Exam: Positive: EOMI; Negative: Sclera icteric ENT Exam: Positive: Atraumatic Neck Exam: Positive: Supple Chest Exam: Positive: Diminished (left side ) Heart Exam: Positive: Rate Normal, Regular Rhythm Abdomen Exam: Positive: Normal bowel sounds, Soft, Tenderness (due to paracentesis) Extremity Exam: Positive: Edema Neuro Exam: Positive: Normal Speech, Strength at 5/5 X4 ext, Cranial Nerves 3- 12 NL Psych Exam: Positive: Mental status NL, Mood NL Vital Signs Vital Signs Date Time Temp Pulse Resp B/P (MAP) Pulse Ox O2 Delivery O2 Flow Rate FiO2 02/17/21 18:29 75 20 94 Room Air 02/17/21 18:15 88/51 (63) 02/17/21 15:40 99.2 Laboratory Data Labs 24H Laboratory Tests 2 02/17/21 12:06: Prothrombin Time 13.9, Prothromb Time International Ratio 1.05, Activated Partial Thromboplast Time 35.4 02/17/21 12:13: Immature Granulocyte % (Auto) 0.9, Neutrophils (%) (Auto) 89.8H, Lymphocytes (%) (Auto) 1.8L, Monocytes (%) (Auto) 6.7, Eosinophils (%) (Auto) 0.3, Basophils (%) (Auto) 0.5, Neutrophils # (Auto) 16.6H, Lymphocytes # (Auto) 0.3L, Monocytes # (Auto) 1.2H, Eosinophils # (Auto) 0.1, Basophils # (Auto) 0.1, Nucleated Red Blood Cells % (auto) 0.0, Anion Gap 8, Glomerular Filtration Rate 35.5, Calcium Level 8.3L, Total Bilirubin 0.3, Direct Bilirubin 0.1, Aspartate Amino Transf (AST/SGOT) 29, Alanine Aminotransferase (ALT/SGPT) 25, Alkaline Phosphatase 94, Total Protein 6.2L, Albumin 2.0L, Albumin/Globulin Ratio 0.5 02/17/21 16:00: Body Fluid Specific [place] 1.021, Body Fluid WBC (Auto) 259H, Body Fluid RBC (Auto) < 2, Body Fluid Mononuclear Cells % Auto 78.0H, Fluid Polymorphonuclear Cell % Auto 22.0H, Body Fluid Glucose Source PERITONEAL, Body Fluid Glucose 113, Body Fluid Protein Source PERITONEAL, Body Fluid Total Protein 2.5, Body Fluid Albumin Source PERITONEAL, Body Fluid Albumin 0.9, Peritoneal Fluid Source PERITONEAL, Peritoneal Fluid Color YELLOW, Peritoneal Fluid Appearance CLOUDY 02/17/21 17:23: Coronavirus (COVID-19)(PCR) NEGATIVE, Influenza Type A (RT-PCR) NEGATIVE, Influenza Type B (RT-PCR) NEGATIVE, Respiratory Syncytial Virus (PCR) NEGATIVE CBC/BMP Laboratory Tests 02/17/21 12:13 Microbiology Microbiology 02/17/21 Anaerobic Culture, Received Pending 02/17/21 Gram Stain, Received Pending 02/17/21 Body Fluid Culture, Received Pending 02/17/21 Blood Culture, Received Pending 02/17/21 Blood Culture, Received Pending Assessment/Plan Mr. Sarabia is a 85 year old male with cirrhosis and CKD stage 4 who presents with dyspnea and cough. This is most likely secondary to pneumonia. He will be started on Ceftriaxone and Doxycycline. PMN is 55, so unlikely SBP, but will still have coverage with antibiotics with PNA. It appears chylous, will obtain triglyceride level. Otherwise, will give albumin as he has post procedure hypotension. May help with his renal function as well. Plan / VTE VTE Prophylaxis Ordered?: Yes Plan Plan 1. Bilateral pneumonia -See on CT chest -Ceftriaxone and doxycycline -Stable on room air 2. Decompensated cirrhosis -Abdomen was distended prior to paracentesis -May have contributed to pneumonia (unable to expand lungs. Started him on IS) -Drained 3.7L of chylous fluid -PMN 55 -Continue midodrine -Started albumin due to post procedure hypotension 3. PADDY on CKD -Baseline creatinine 1.5, on admission 1.9 -May improve after paracentesis -Will need to improve BP, started albumin -Supportive care 4. Hyperkalemia -Secondary to PADDY -Giving albumin -Giving 1 dose of Kayexalate -Repeat BMP at 2300 5. Large left pleural effusion -Similar to previous admission last month -Held off on thoracentesis due to albumin depletion 6. Gout -Continue allopurinol 7. Hypertension -Blood pressure low -Hold carvedilol 8. DVT ppx -Heparin subq Disposition: pending clinical improvement and improvement in renal function. GILDARDO FITZPATRICK DO Feb 17, 2021 19:26
[2021-02-17 20:15] LABS: SOURCE, BODY FLUID TRIG PERITONEAL; TRIGLYCERIDE, BODY FLUID 480 MG/DL (NOT ESTABLISHED)
[2021-02-17] MEDS: DOXYCYCLINE HYCLATE 100 MG in D5W MINI-BAG PLUS 100 ML IV SCH (20:42)
[2021-02-17] MEDS: HEPARIN SOD (PORCINE) 5000UNITS/ML 1ML VIAL/SYRINGE SC SCH (20:44)
[2021-02-17] MEDS ORDERED: DOCUSATE SODIUM 100MG CAPSULE PO PRN (21:00)
[2021-02-17 22:15] VITALS: BP 92/46
[2021-02-17] MEDS: FUROSEMIDE 20 MG TAB PO SCH (22:36)
[2021-02-17] MEDS: allopurinoL 100 MG TAB PO SCH (22:40)
[2021-02-17] MEDS: FAMOTIDINE 20 MG TAB PO SCH (22:40)
[2021-02-17] MEDS: TAMSULOSIN 0.4 MG CAP PO SCH (22:41)
[2021-02-17 23:07] VITALS: BP 102/55
[2021-02-17 23:22] VITALS: BP 99/54
[2021-02-17 23:38] LABS: CALCIUM LEVEL 7.7 MG/DL (8.8-10.2); CREATININE FOR GFR 2.3 MG/DL (0.70-1.30); GLOMERULAR FILTRATION RATE 28.8 (>35); POTASSIUM SERUM 5.2 MEQ/L (3.5-5.1)
[2021-02-18] VITALS (13 sets, daily range): BP systolic 95–117; BP diastolic 46–56
--- NOTE | 2021-02-18 02:44 | ECGEPIP ---
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
[2021-02-18] MEDS: HEPARIN SOD (PORCINE) 5000UNITS/ML 1ML VIAL/SYRINGE SC SCH ×2 (06:27→18:27)
[2021-02-18 06:41] LABS: BASO # 0.1 10^3/uL (0.0-0.2); BASO % 0.7 % (0.0-1.0); EOS # 0.1 10^3/uL (0.0-0.5); EOS % 1.1 % (0.0-3.0); HEMATOCRIT 26.8 % (42.0-52.0); LYMPH # 0.3 10^3/uL (1.5-5.0); LYMPH % 3.4 % (24.0-44.0); MEAN CORPUSCULAR HEMOGLOBIN 29.4 pg (27.0-33.0); MEAN CORPUSCULAR HGB CONC 33.2 g/dl (32.0-36.5); MEAN CORPUSCULAR VOLUME 88.4 fl (80.0-96.0); MONO # 0.8 10^3/uL (0.0-0.8); MONO % 8.7 % (2.0-8.0); NEUTROPHILS # 8.3 10^3/uL (1.5-8.5); NEUTROPHILS % 85.6 % (36.0-66.0); PLATELET COUNT, AUTOMATED 319 10^3/uL (150-450); RED BLOOD COUNT 3.03 10^6/uL (4.30-6.10); WHITE BLOOD COUNT 9.7 10^3/uL (4.0-10.0)
[2021-02-18 06:44] LABS: HEMOGLOBIN 8.9 g/dl (13.5-17.5)
[2021-02-18 07:04] LABS: ALBUMIN 2.1 GM/DL (3.2-5.2); BILIRUBIN,TOTAL 0.2 MG/DL (0.2-1.0); CREATININE FOR GFR 2.07 MG/DL (0.70-1.30); GLOMERULAR FILTRATION RATE 32.6 (>35); POTASSIUM SERUM 4.8 MEQ/L (3.5-5.1); TOTAL PROTEIN 5.5 GM/DL (6.4-8.2)
[2021-02-18] MEDS: LACTOBACILLUS ACIDOPHILUS CAP (BACID) PO SCH (09:04)
[2021-02-18] MEDS: FIBER-CON 625 MG TAB PO SCH (09:04)
[2021-02-18] MEDS: VITAMIN E 400 INTERNATIONAL UNITS CAP PO SCH (09:04)
[2021-02-18] MEDS: ASCORBIC ACID 500 MG TAB PO SCH (09:04)
[2021-02-18] MEDS: ASPIRIN 81MG ENTERIC TABLET PO SCH (09:04)
[2021-02-18] MEDS: FUROSEMIDE 20 MG TAB PO SCH ×2 (09:05→20:37)
[2021-02-18] MEDS: FERROUS GLUCONATE 324 MG TAB PO SCH (09:05)
[2021-02-18] MEDS: MAGNESIUM OXIDE 400MG TAB (MAG-OX) PO SCH (09:05)
[2021-02-18] MEDS: FAMOTIDINE 20 MG TAB PO SCH ×2 (09:05→20:37)
[2021-02-18] MEDS: MIDODRINE 5 MG TAB PO SCH ×3 (09:05→15:56)
[2021-02-18] MEDS: DOXYCYCLINE HYCLATE 100 MG in D5W MINI-BAG PLUS 100 ML IV SCH ×2 (09:06→20:37)
--- NOTE | 2021-02-18 11:57 | IPNPDOC ---
Date Seen The patient was seen on 02/18/21. Progress Note ADDENDUM TO PROGRESS NOTE DICTATED: SEVERE PROTEIN CALORI MALNUTRITION BMI 17 ALBUMIN 2 THIN AND CACHECTIC SECONDARY HYPERPARATHYROIDISM, CHRONIC. DUE TO CKD VS, I&O, 24H, Fishbone Vital Signs/I&O Vital Signs Date Time Temp Pulse Resp B/P (MAP) Pulse Ox O2 Delivery O2 Flow Rate FiO2 02/18/21 07:46 96.5 71 18 110/52 (71) 97 Room Air I&O- Last 24 Hours up to 6 AM 02/18/21 06:00 Intake Total 150.0 ml Output Total 150 ml Balance 0 ml Laboratory Data 24H LABS Laboratory Tests 2 02/17/21 12:06: Prothrombin Time 13.9, Prothromb Time International Ratio 1.05, Activated Partial Thromboplast Time 35.4 02/17/21 12:13: Immature Granulocyte % (Auto) 0.9, Neutrophils (%) (Auto) 89.8H, Lymphocytes (%) (Auto) 1.8L, Monocytes (%) (Auto) 6.7, Eosinophils (%) (Auto) 0.3, Basophils (%) (Auto) 0.5, Neutrophils # (Auto) 16.6H, Lymphocytes # (Auto) 0.3L, Monocytes # (Auto) 1.2H, Eosinophils # (Auto) 0.1, Basophils # (Auto) 0.1, Nucleated Red Blood Cells % (auto) 0.0, Anion Gap 8, Glomerular Filtration Rate 35.5, Calcium Level 8.3L, Total Bilirubin 0.3, Direct Bilirubin 0.1, Aspartate Amino Transf (AST/SGOT) 29, Alanine Aminotransferase (ALT/SGPT) 25, Alkaline Phosphatase 94, Total Protein 6.2L, Albumin 2.0L, Albumin/Globulin Ratio 0.5 02/17/21 16:00: Body Fluid Specific [place] 1.021, Body Fluid WBC (Auto) 259H, Body Fluid RBC (Auto) < 2, Body Fluid Mononuclear Cells % Auto 78.0H, Fluid Polymorphonuclear Cell % Auto 22.0H, Body Fluid Glucose Source PERITONEAL, Body Fluid Glucose 113, Body Fluid Protein Source PERITONEAL, Body Fluid Total Protein 2.5, Body Fluid Albumin Source PERITONEAL, Body Fluid Albumin 0.9, Body Fluid Triglyceride Source PERITONEAL, Body Fluid Triglycerides 480, Peritoneal Fluid Source PERITONEAL, Peritoneal Fluid Color YELLOW, Peritoneal Fluid Appearance CLOUDY 02/17/21 17:23: Coronavirus (COVID-19)(PCR) NEGATIVE, Influenza Type A (RT-PCR) NEGATIVE, Influenza Type B (RT-PCR) NEGATIVE, Respiratory Syncytial Virus (PCR) NEGATIVE 02/17/21 23:07: Anion Gap 7L, Glomerular Filtration Rate 28.8L, Calcium Level 7.7L 02/18/21 06:18: Anion Gap 8, Glomerular Filtration Rate 32.6L, Calcium Level 8.0L, Immature Granulocyte % (Auto) 0.5, Neutrophils (%) (Auto) 85.6H, Lymphocytes (%) (Auto) 3.4L, Monocytes (%) (Auto) 8.7H, Eosinophils (%) (Auto) 1.1, Basophils (%) (Auto) 0.7, Neutrophils # (Auto) 8.3, Lymphocytes # (Auto) 0.3L, Monocytes # (Auto) 0.8, Eosinophils # (Auto) 0.1, Basophils # (Auto) 0.1, Nucleated Red Blood Cells % (auto) 0.0, Total Bilirubin 0.2, Aspartate Amino Transf (AST/SGOT) 25, Alanine Aminotransferase (ALT/SGPT) 20, Alkaline Phosphatase 78, Total Protein 5.5L, Albumin 2.1L, Albumin/Globulin Ratio 0.6 CBC/BMP Laboratory Tests 02/17/21 12:13 02/17/21 23:07 02/18/21 06:18 Microbiology Microbiology 02/17/21 Anaerobic Culture, Received Pending 02/17/21 Gram Stain - Final, Resulted 02/17/21 Body Fluid Culture, Resulted Pending 02/17/21 Blood Culture, Received Pending 02/17/21 Blood Culture, Received Pending REVA CRAWFORD MD Feb 18, 2021 11:57
--- NOTE | 2021-02-18 13:52 | IPN ---
PROGRESS NOTE DATE: 02/18/2021 SUBJECTIVE: Patient complains of shortness of breath, cough productive of white scant sputum. No fever or chills overnight. Decreased abdominal distention, decreased abdominal pain. OBJECTIVE: Vital signs: Temperature 96.5, pulse 71, respiratory rate 18, blood pressure 110/52, 97% on room air. General: No use of respiratory accessory muscles, able to complete sentences. HEENT: Patient is anicteric, no jaundice. Neck: No JVD, no thyromegaly. Lungs: Diminished breath sounds on the left. Heart: S1 and S2 sinus rhythm. Abdomen: Soft, nontender, obese, no fluid wave. Extremities: Positive pitting edema 1-2+. LABORATORY DATA: White count 9.7, hemoglobin 8.9, hematocrit 26.8, platelet count 319. Sodium 133, potassium 4.8, chloride 101, bicarb 24, BUN 56, creatinine 2.07, glucose 77; previous creatinine 2.3. Peritoneal fluid 02/17/2021: No organism, moderate WBC, moderate RBC. IMAGING STUDIES: 02/17/[address]: Large left pleural effusion status quo, bilateral basilar opacities and patchy bilateral upper lobe representing change from prior, left lower lobe air bronchogram, pericardial effusion unchanged. ASSESSMENT: 85-year-old male admitted on 02/17/2021 with complaints of shortness of breath with past history of chronic kidney disease stage 4, CAD, anemia of chronic disease, hyperparathyroidism, gout, severe protein calorie malnutrition with hypoalbuminemia, hypercholesterolemia, hypertension, macular degeneration, BPH found to have bilateral pneumonia and 3.7 liters acidic fluid removed on paracentesis. ACTIVE ISSUES/PLAN: 1. Bilateral pneumonia: Currently on ceftriaxone and doxycycline. No sputum culture sent. check urine legionella and strep pneumoniae antigen 2. Ascites status post paracentesis with 3.7 liters of fluid removed: Currently on I.V. ceftriaxone. Peritoneal fluid had 259 WBCs, 22 polymorphonuclear, mononuclear 78. Anaerobic culture is pending. 3. Chronic kidney disease stage 4: At baseline creatinine. 4. Hypertension: Currently needing midodrine with systolic pressure of 110, mean arterial pressure of 71. 5. Hypomagnesemia: Supplemented mag ox and magnesium sulfate I.V. times 1. 6. BPH: On chronic Flomax. 7. Gout and secondary hyperparathyroidism: Continued on allopurinol. 8. Severe protein calorie malnutrition, BMI of 17 with hyperalbuminemia complicating his care. 9. DVT prophylaxis: Compression stockings. 10. Disposition: 1-2 more days. PT and ARU consult. CODE STATUS: DNR, DNI. MTDD
[2021-02-18] MEDS: cefTRIAXone SOD 2 GM in D5W MINI-BAG PLUS 50 ML IV SCH ×2 (18:27→19:46)
[2021-02-18] MEDS: TAMSULOSIN 0.4 MG CAP PO SCH (20:37)
[2021-02-18] MEDS: allopurinoL 100 MG TAB PO SCH (20:37)
[2021-02-19] VITALS (11 sets, daily range): BP systolic 93–138; BP diastolic 42–82
[2021-02-19] MEDS: HEPARIN SOD (PORCINE) 5000UNITS/ML 1ML VIAL/SYRINGE SC SCH ×2 (06:09→18:21)
[2021-02-19 07:00] LABS: BASO # 0.1 10^3/uL (0.0-0.2); BASO % 1.4 % (0.0-1.0); EOS # 0.3 10^3/uL (0.0-0.5); EOS % 4.5 % (0.0-3.0); HEMATOCRIT 29.8 % (42.0-52.0); HEMOGLOBIN 9.7 g/dl (13.5-17.5); LYMPH # 0.3 10^3/uL (1.5-5.0); LYMPH % 5.7 % (24.0-44.0); MEAN CORPUSCULAR HEMOGLOBIN 28.7 pg (27.0-33.0); MEAN CORPUSCULAR HGB CONC 32.6 g/dl (32.0-36.5); MEAN CORPUSCULAR VOLUME 88.2 fl (80.0-96.0); MONO # 0.6 10^3/uL (0.0-0.8); MONO % 10.6 % (2.0-8.0); NEUTROPHILS # 4.5 10^3/uL (1.5-8.5); NEUTROPHILS % 77.1 % (36.0-66.0); PLATELET COUNT, AUTOMATED 328 10^3/uL (150-450); RED BLOOD COUNT 3.38 10^6/uL (4.30-6.10); WHITE BLOOD COUNT 5.8 10^3/uL (4.0-10.0)
[2021-02-19 07:27] LABS: ALBUMIN 2.4 GM/DL (3.2-5.2); BILIRUBIN,TOTAL 0.2 MG/DL (0.2-1.0); CALCIUM LEVEL 8.1 MG/DL (8.8-10.2); CREATININE FOR GFR 1.9 MG/DL (0.70-1.30); POTASSIUM SERUM 4.2 MEQ/L (3.5-5.1); TOTAL PROTEIN 5.9 GM/DL (6.4-8.2)
[2021-02-19] MEDS: DOXYCYCLINE HYCLATE 100 MG in D5W MINI-BAG PLUS 100 ML IV SCH ×2 (08:25→21:34)
[2021-02-19] MEDS: FAMOTIDINE 20 MG TAB PO SCH ×2 (08:26→20:47)
[2021-02-19] MEDS: MIDODRINE 5 MG TAB PO SCH ×3 (08:26→16:31)
[2021-02-19] MEDS: ASPIRIN 81MG ENTERIC TABLET PO SCH (08:26)
[2021-02-19] MEDS: MAGNESIUM OXIDE 400MG TAB (MAG-OX) PO SCH (08:26)
[2021-02-19] MEDS: LACTOBACILLUS ACIDOPHILUS CAP (BACID) PO SCH (08:26)
[2021-02-19] MEDS: FIBER-CON 625 MG TAB PO SCH (08:26)
[2021-02-19] MEDS: FERROUS GLUCONATE 324 MG TAB PO SCH (08:26)
[2021-02-19] MEDS: VITAMIN E 400 INTERNATIONAL UNITS CAP PO SCH (08:26)
[2021-02-19] MEDS: ASCORBIC ACID 500 MG TAB PO SCH (08:26)
[2021-02-19] MEDS: FUROSEMIDE 20 MG TAB PO SCH ×2 (08:27→20:47)
--- NOTE | 2021-02-19 11:53 | IPN ---
PROGRESS NOTE DATE: 02/19/2021 SUBJECTIVE: The patient complains of generalized weakness "my legs are very weak." No complaints of cough, dizziness, or lightheadedness. No fever or chills overnight. No shortness of breath. OBJECTIVE: VITAL SIGNS: Temperature 97, pulse 72, respiratory rate 18, blood pressure 100/56, 96% on room air. GENERAL: Awake, alert, and oriented. Answering questions appropriately. HEENT: No icterus. No jaundice. No pallor. No cyanosis. No JVD. Dry mucous membranes. LUNGS: Diminished. No wheezing. HEART: S1, S2. Sinus rhythm. ABDOMEN: Soft, nontender, and nondistended. Positive bowel sounds. EXTREMITIES: Positive edema. LABORATORY DATA: CBC and metabolic panel have been reviewed notable for anemia, hyponatremia, and creatinine 1.9 decreased from 2.07 yesterday. Microbiology anaerobic peritoneal fluid no growth and no organism seen. Two sets of blood cultures 02/17 negative. ASSESSMENT: This is an 85-year-old male admitted on 02/17 with a history of chronic kidney disease stage IV, coronary artery disease (CAD), anemia of chronic disease, hyperparathyroidism, gout, severe protein-calorie malnutrition with hypoalbuminemia, hypercholesterolemia, hypertension, macular degeneration, BPH, and prior history of alcohol abuse with history of recurrent ascites admitted due to shortness of breath. Found to have bilateral pneumonia and recurrent ascites status post 3.7 liters fluid removed on paracentesis. CURRENT ISSUES: 1. Bilateral pneumonia still on ceftriaxone and doxycycline. Awaiting urine Legionella and streptococcal antigen. Doing well with decreased white count. No fever or chills. Saturating well. 2. Ascites status post paracentesis. Ascitic fluid as negative. Currently on ceftriaxone, but PMN was only 22. Anaerobic cultures were negative. 3. Chronic kidney disease stage III to IV at baseline creatinine. Avoiding nephrotoxins and renally dosing all medications. 4. Chronic hypotension on midodrine 10 t.i.d. Keep mean arterial pressure at least greater than 60. 5. BPH on chronic Flomax. 6. Gout and secondary hyperparathyroidism on allopurinol. 7. Severe protein-calorie malnutrition with BMI of 17 and hypoalbuminemia complicating his care. Nutrition was consulted. 8. Deep vein thrombosis (DVT) prophylaxis with compression stockings. 9. Disposition: Physical therapy, one to two more days of hospital stay, and discharge plans hopefully by [facility]. SYLVAIN
[2021-02-19] MEDS: TAMSULOSIN 0.4 MG CAP PO SCH (20:46)
[2021-02-19] MEDS: allopurinoL 100 MG TAB PO SCH (20:46)
[2021-02-19] MEDS: cefTRIAXone SOD 2 GM in D5W MINI-BAG PLUS 50 ML IV SCH (20:47)
[2021-02-20 06:00] VITALS: BP 102/56
[2021-02-20] MEDS: HEPARIN SOD (PORCINE) 5000UNITS/ML 1ML VIAL/SYRINGE SC SCH (06:19)
[2021-02-20] MEDS: DOXYCYCLINE HYCLATE 100 MG in D5W MINI-BAG PLUS 100 ML IV SCH (08:33)
[2021-02-20] MEDS: LACTOBACILLUS ACIDOPHILUS CAP (BACID) PO SCH (08:33)
[2021-02-20] MEDS: ASPIRIN 81MG ENTERIC TABLET PO SCH (08:33)
[2021-02-20] MEDS: FIBER-CON 625 MG TAB PO SCH (08:33)
[2021-02-20] MEDS: FERROUS GLUCONATE 324 MG TAB PO SCH (08:33)
[2021-02-20] MEDS: ASCORBIC ACID 500 MG TAB PO SCH (08:33)
[2021-02-20] MEDS: FUROSEMIDE 20 MG TAB PO SCH (08:33)
[2021-02-20] MEDS: FAMOTIDINE 20 MG TAB PO SCH (08:33)
[2021-02-20] MEDS: VITAMIN E 400 INTERNATIONAL UNITS CAP PO SCH (08:33)
[2021-02-20] MEDS: MAGNESIUM OXIDE 400MG TAB (MAG-OX) PO SCH (08:33)
[2021-02-20] MEDS: MIDODRINE 5 MG TAB PO SCH ×2 (08:39→12:19)
[2021-02-20 08:40] VITALS: BP 123/70
[2021-02-20] MEDS ORDERED: CEFDINIR 300 MG CAP (OMNICEF) PO SCH (09:00)
[2021-02-20 09:08] LABS: BASO # 0.1 10^3/uL (0.0-0.2); EOS # 0.2 10^3/uL (0.0-0.5); EOS % 2.8 % (0.0-3.0); HEMATOCRIT 31.8 % (42.0-52.0); HEMOGLOBIN 10.3 g/dl (13.5-17.5); LYMPH # 0.3 10^3/uL (1.5-5.0); LYMPH % 5.1 % (24.0-44.0); MEAN CORPUSCULAR HEMOGLOBIN 28.8 pg (27.0-33.0); MEAN CORPUSCULAR HGB CONC 32.4 g/dl (32.0-36.5); MEAN CORPUSCULAR VOLUME 88.8 fl (80.0-96.0); MONO # 0.7 10^3/uL (0.0-0.8); MONO % 10.6 % (2.0-8.0); NEUTROPHILS # 5.3 10^3/uL (1.5-8.5); NEUTROPHILS % 79.8 % (36.0-66.0); PLATELET COUNT, AUTOMATED 376 10^3/uL (150-450); RED BLOOD COUNT 3.58 10^6/uL (4.30-6.10); WHITE BLOOD COUNT 6.7 10^3/uL (4.0-10.0)
[2021-02-20 10:32] LABS: CALCIUM LEVEL 9.1 MG/DL (8.8-10.2); CREATININE FOR GFR 1.93 MG/DL (0.70-1.30); GLOMERULAR FILTRATION RATE 35.3 (>35); POTASSIUM SERUM 4.3 MEQ/L (3.5-5.1)
[2021-02-20] MEDS ORDERED: CEFD300CAP PO (11:29)
[2021-02-20] MEDS ORDERED: DOXY100T PO (11:29)
--- NOTE | 2021-02-20 11:38 | DS.PDOC ---
Discharge Summary General Date of Admission Feb 17, 2021 at 18:18 Date of Discharge 02/20/[address] Pack's discharge note job # [id number] Vital Signs/I&Os Vital Signs Date Time Temp Pulse Resp B/P (MAP) Pulse Ox O2 Delivery O2 Flow Rate FiO2 02/20/21 08:40 82 123/70 (87) 02/20/21 06:00 98.0 18 94 Room Air I&O- Last 24 Hours up to 6 AM 02/20/21 06:00 Intake Total 1480.0 ml Output Total 1350 ml Balance 130.0 ml Laboratory Data Labs 24H Laboratory Tests 2 02/20/21 08:53: Immature Granulocyte % (Auto) 0.7, Neutrophils (%) (Auto) 79.8H, Lymphocytes (%) (Auto) 5.1L, Monocytes (%) (Auto) 10.6H, Eosinophils (%) (Auto) 2.8, Basophils (%) (Auto) 1.0, Neutrophils # (Auto) 5.3, Lymphocytes # (Auto) 0.3L, Monocytes # (Auto) 0.7, Eosinophils # (Auto) 0.2, Basophils # (Auto) 0.1, Nucleated Red Blood Cells % (auto) 0.0, Anion Gap 8, Glomerular Filtration Rate 35.3, Calcium Level 9.1 CBC/BMP Laboratory Tests 02/20/21 08:53 Microbiology Microbiology 02/17/21 Anaerobic Culture - Final, Complete 02/17/21 Gram Stain - Final, Complete 02/17/21 Body Fluid Culture - Final, Complete 02/17/21 Blood Culture - Preliminary, Resulted No Growth after 48 hours. All Specime... 02/17/21 Blood Culture - Preliminary, Resulted No Growth after 48 hours. All Specime... Discharge Medications Scheduled Allopurinol (Allopurinol) 100 Mg Tablet, 100 MG PO QHS, (Reported) Ascorbic Acid (Ascorbic Acid) 500 Mg Tablet, 500 MG PO DAILY, (Reported) TAKES AT NOON Aspirin (Ecotrin) 81 Mg Tablet.dr, 81 MG PO DAILY, (Reported) Calcium Polycarbophil (Fibercon) 625 Mg Tablet, 1,250 MG PO DAILY, (Reported) Carvedilol (Carvedilol) 25 Mg Tablet, 12.5 MG PO BID, (Reported) Cefdinir (Cefdinir) 300 Mg Capsule, 300 MG PO DAILY Doxycycline Hyclate (Doxycycline Hyclate) 100 Mg Tablet, 100 MG PO BID Famotidine (Famotidine) 20 Mg Tablet, 20 MG PO BID, (Reported) TAKES AT NOON/HS Ferrous Gluconate (Ferrous Gluconate) 324 Mg Tablet, 324 MG PO DAILY, (Reported) TAKES AT NOON Furosemide (Furosemide) 20 Mg Tablet, 20 MG PO BID, (Reported) TAKES AM/NOON L.acidoph/L.bulg/B.bif/S.therm (Bacid Caplet) 1 Each Tablet, 1 TAB PO DAILY, (Reported) Magnesium Oxide (Magnesium Oxide) 400 Mg Tablet, 400 MG PO DAILY, (Reported) Midodrine HCl (Midodrine HCl) 5 Mg Tablet, 5 MG PO TID, (Reported) 0800, 1200, 1600 Tamsulosin HCl (Flomax) 0.4 Mg Capsule, 0.4 MG PO QHS, (Reported) Vit C/E/Zn/Coppr/Lutein/Zeaxan (Preservision Areds 2 Softgel) 1 Each Capsule, 1 EACH PO BID, (Reported) TAKES AM/NOON Vitamin E (Dl,Tocopheryl Acet) (Vitamin E) 400 Unit Capsule, 400 UNIT PO DAILY, (Reported) TAKES AT NOON Scheduled PRN Docusate Sodium (Colace) 100 Mg Capsule, 100 MG PO BID PRN for CONSTIPATION, ( Reported) Allergies Coded Allergies: No Known Allergies (Unverified , 08/26/20) REVA PACK MD Feb 20, 2021 11:38
--- NOTE | 2021-02-20 12:07 | DSES ---
DISCHARGE SUMMARY DATE OF ADMISSION: 02/17/2021 DATE OF DISCHARGE: 02/20/2021 PRIMARY DISCHARGE DIAGNOSES: Alcohol liver cirrhosis with recurrent ascites, stage 4 chronic kidney disease, gout, hypercholesterolemia, hypertension, CAD, anemia of chronic disease, macular degeneration, benign prostatic hypertrophy, diverticulosis, secondary hyperparathyroidism, bilateral pneumonia community-acquired, chronic hypotension on Midodrine, severe protein calorie malnutrition with BMI of 17 and hypoalbuminemia, chronic debility. DISCHARGE MEDICATIONS: 1. Cefdinir 300 mg daily. 2. Doxycycline 100 b.i.d. 3. Allopurinol 100 q.h.s. 4. Ascorbic acid 500 daily. 5. Aspirin 81 mg daily. 6. Fibercon daily. 7. Coreg 12.5 mg b.i.d. 8. Colace 100 b.i.d. 9. Famotidine 20 b.i.d. 10.Ferrous sulfate 324 daily. 11.Lasix 20 b.i.d. 12.Bacid one tablet daily. 13.Mag-Ox 400 daily. 14.Midodrine 5 t.i.d. 15.Flomax 0.4 q.h.s. 16.PreserVision one tablet b.i.d. 17.Vitamin E 400 units daily. DISCHARGE INSTRUCTIONS: Patient is to do daily weights. If more than 2 pound weight gain, call Dr. Hung to adjust his diuretics. HOSPITAL COURSE: This is an 85-year-old male admitted on 02/17/2021 with history of chronic kidney disease stage 5, CAD, anemia of chronic disease, hyperparathyroidism, gout, severe protein calorie malnutrition with hypoalbuminemia, hypercholesterolemia, hypertension, macular degeneration, alcohol abuse with liver cirrhosis and recurrent ascites, who was admitted due to shortness of breath and found to have bilateral pneumonia and decompensated liver cirrhosis with fluid overload and recurrent ascites. The patient was started on I.V. Ceftriaxone, Doxycycline for bilateral pneumonia. Blood cultures were negative. Patient had no fever or chills, and did well. He underwent paracentesis due to recurrent ascites for decompensated liver cirrhosis and was kept on I.V. Ceftriaxone with no fever or chills. Patient's baseline creatinine was maintained with chronic kidney disease stage 3 to 4. He had chronic hypotension, and received Midodrine as well as albumin infusions. He was transfused 25% albumin with mean arterial pressure maintained at 71 to 87 with increased dose of Midodrine to 10 mg t.i.d. Patient had stable hemoglobin at 10.3 and hematocrit of 31.8. Patient's abdominal distension has improved. He has a baseline creatinine of 1.9. 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 Patient's blood fluid culture had no growth. Blood cultures were negative. PHYSICAL EXAMINATION ON DISCHARGE: VITAL SIGNS: Temperature 98, pulse 82, respiratory rate 18, blood pressure 123/70, 94% on room air. GENERAL: Awake, alert and oriented to himself. Answers questions appropriately. HEENT: No JVD or thyromegaly. LUNGS: Diminished, bibasilar crackles. HEART: S1, S2, sinus rhythm. ABDOMEN: Soft, non-distended. Positive bowel sounds. No fluid wave. No hepatosplenomegaly, rebound or guarding. EXTREMITIES: Chronic 1+ edema. LABORATORY DATA: White count 6.7, hemoglobin 10, hematocrit 31, platelet count 376,000. Sodium 131, potassium 4.3, chloride 97, bicarb 26, BUN 48, creatinine 1.93, glucose 110. MICROBIOLOGY: Blood fluid culture, peritoneal fluid no growth. Two sets of blood culture negative. Anaerobic peritoneal culture no growth anaerobically. IMAGING STUDIES: See below. TIME SPENT ON DISCHARGE: 30 minutes. [facility]
[2021-02-20] MEDS ORDERED: DOXYCYCLINE HYCLATE 100MG TABLET PO SCH (21:00)
[2021-02-21 12:09] LABS: BODY FLUID CULTURE Not indicated. (.); ORGANISM ID Not indicated. (.); SPECIMEN SOURCE Urine (.); URINE STREP PNEUMONIAE ANTIGEN Negative (Negative)
== END 2021-02-20 19:00 | disposition home health service (06) | DRG 432 ==
LOC: M ED 11:35 → M ED INP 18:18 → ENRESERV 20:53 → M PCU 22:01 → M MSPAV 02-18 15:59
PROVIDERS: ADMIT Internal Medicine; ATTEND General Practice
PROC: 0W9G3ZX Drainage of Peritoneal Cavity, Percutaneous Approach, Diagnostic (ICD-10-PCS; principal; 2021-02-17 15:19)
DX: K70.31 Alcoholic cirrhosis of liver with ascites (principal); J18.9 Pneumonia, unspecified organism; E43 Unspecified severe protein-calorie malnutrition; N18.4 Chronic kidney disease, stage 4 (severe); N25.81 Secondary hyperparathyroidism of renal origin; Z68.1 Body mass index [BMI] 19.9 or less, adult; J90 Pleural effusion, not elsewhere classified; N17.9 Acute kidney failure, unspecified; M10.9 Gout, unspecified; E78.00 Pure hypercholesterolemia, unspecified; I12.9 Hypertensive chronic kidney disease with stage 1 through stage 4 chronic kidney disease, or unspecified chronic kidney disease; I25.10 Atherosclerotic heart disease of native coronary artery without angina pectoris; D63.1 Anemia in chronic kidney disease; H35.30 Unspecified macular degeneration; N40.0 Benign prostatic hyperplasia without lower urinary tract symptoms; I95.89 Other hypotension; E88.09 Other disorders of plasma-protein metabolism, not elsewhere classified; D72.829 Elevated white blood cell count, unspecified; E87.5 Hyperkalemia; R53.1 Weakness; Z79.899 Other long term (current) drug therapy; Z98.49 Cataract extraction status, unspecified eye; Z87.891 Personal history of nicotine dependence; Z20.822 Contact with and (suspected) exposure to COVID-19; Z66 Do not resuscitate

== ENCOUNTER → 2021-03-14 | Outpatient (CLI) | payer MEDICARE, OTHER ==
[~2021-03-14] MED LIST changes: +CEFD300CAP PO; +CIPR500T39 PO; +COLA100C5 PO; +DOXY100T PO
[2021-03-14 09:35] VITALS: BP 108/57
--- NOTE | 2021-03-14 16:16 | REP ---
INDICATION: CIRRHOSIS. COMPARISON: None. TECHNIQUE: The procedure was performed under the direct supervision of Dr. Corral. The risks and benefits of the procedure were explained to the patient and informed consent was obtained. The largest pocket of fluid was localized in the left flank using ultrasound guidance. The skin was prepped and draped in a sterile fashion. 1% lidocaine was used as a local anesthetic. An 8-Kyrgyz multi side-hole catheter was inserted using trocar technique.3900 cc of chylous fluid was withdrawn and discarded. The patient tolerated the procedure well and there were no immediate complications. After the appropriate amount of monitored convalescence, the patient was discharged from the department. FINDINGS: None IMPRESSION: Ultrasound-guided paracentesis [id number] cc of chylous fluid. <Electronically signed by Richy Baez > 03/14/21 1527 <Electronically signed by Edmar Corral > 03/14/21 1610
== END ==
LOC: M IRPRO 08:00
PROVIDERS: ATTEND Internal Medicine Nephrology
DX: K70.31 Alcoholic cirrhosis of liver with ascites (principal)

== ENCOUNTER → 2021-03-28 | Outpatient (CLI) | payer MEDICARE, OTHER ==
[~2021-03-28] MED LIST changes: +SODIUM BICARBONATE 8.4% INJ 50MEQ 50 ML VIAL As Ordered ONE
[2021-03-28 13:20] VITALS: BP 112/57
--- NOTE | 2021-03-28 15:01 | REP ---
INDICATION: ASCITES The patient has a history of ascites COMPARISON: None. TECHNIQUE: The procedure was performed by DAVID Padilla, under the direct supervision of Dr. Corral The risks and benefits of the procedure were explained to the patient and an informed consent was obtained both verbally and written. Directly prior to the start of the procedure a formal time-out was completed in the procedure room. The largest pocket of fluid was localized in the left flank using ultrasound guidance. The skin was prepped and draped in a sterile fashion. Eleven ML of buffered lidocaine was used as a local anesthetic. An 8-Kiswahili multi side-hole catheter was inserted using trocar technique. FINDINGS: 4500 mL of chylous ascites fluid was removed and discarded. The patient tolerated the procedure well and there were no immediate complications. After the appropriate amount of monitored convalescence, the patient was discharged from the department. 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 <Electronically signed by Mariel Medina > 03/28/21 1400 <Electronically signed by Edmar Corral > 03/28/21 1959
== END ==
LOC: M IRPRO 12:10
PROVIDERS: ATTEND Internal Medicine Nephrology
DX: K70.31 Alcoholic cirrhosis of liver with ascites (principal)

== ENCOUNTER → 2021-04-11 | Outpatient (CLI) | payer MEDICARE, OTHER ==
[~2021-04-11] MED LIST changes: -SODIUM BICARBONATE 8.4% INJ 50MEQ 50 ML VIAL As Ordered ONE
[2021-04-11 13:15] VITALS: BP 107/62
--- NOTE | 2021-04-11 16:45 | REP ---
INDICATION: ASCITES. COMPARISON: None. TECHNIQUE: The procedure was performed under the direct supervision of Dr. Corral. The risks and benefits of the procedure were explained to the patient and informed consent was obtained. The largest pocket of fluid was localized in the left flank using ultrasound guidance. The skin was prepped and draped in a sterile fashion. 1% lidocaine was used as a local anesthetic. An 8-Ugandan multi side-hole catheter was inserted using trocar technique.4500 cc of chylous fluid was withdrawn and discarded. The patient tolerated the procedure well and there were no immediate complications. After the appropriate amount of monitored convalescence, the patient was discharged from the department. FINDINGS: None IMPRESSION: Ultrasound-guided paracentesis [id number] cc of chylous fluid. <Electronically signed by Richy Baez > 04/11/21 1618 <Electronically signed by Edmar Corral > 04/11/21 1641
== END ==
LOC: M IRPRO 12:33
PROVIDERS: ATTEND Internal Medicine Nephrology
DX: K70.31 Alcoholic cirrhosis of liver with ascites (principal)

== ENCOUNTER → 2021-04-25 | Outpatient (CLI) | payer MEDICARE, OTHER ==
[~2021-04-25] MED LIST changes: +SODIUM BICARBONATE 8.4% INJ 50MEQ 50 ML VIAL As Ordered ONE
[2021-04-25 13:47] VITALS: BP 112/58
--- NOTE | 2021-04-25 17:15 | REP ---
INDICATION: CIRRHOSIS The patient has a history of ascites COMPARISON: None. TECHNIQUE: The procedure was performed by DAVID Padilla, under the direct supervision of Dr. Corral The risks and benefits of the procedure were explained to the patient and an informed consent was obtained both verbally and written. Directly prior to the start of the procedure a formal time-out was completed in the procedure room. The largest pocket of fluid was localized in the left flank using ultrasound guidance. The skin was prepped and draped in a sterile fashion. Five ML of buffered lidocaine was used as a local anesthetic. An 8-Chinese multi side-hole catheter was inserted using trocar technique. 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 The patient tolerated the procedure well and there were no immediate complications. After the appropriate amount of monitored convalescence, the patient was discharged from the department. 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 <Electronically signed by Mariel Medina > 04/25/21 1637 <Electronically signed by Edmar Corral > 04/25/21 1712
== END ==
LOC: M IRPRO 12:27
PROVIDERS: ATTEND Internal Medicine Nephrology
DX: K70.31 Alcoholic cirrhosis of liver with ascites (principal)

== ENCOUNTER → 2021-05-09 | Outpatient (CLI) | payer MEDICARE, OTHER ==
[2021-05-09 14:12] VITALS: BP 105/57
--- NOTE | 2021-05-09 15:51 | REP ---
INDICATION: ASCITES The patient has a history of ascites COMPARISON: None. TECHNIQUE: The procedure was performed by DAVID Padilla, under the direct supervision of Dr. Liriano The risks and benefits of the procedure were explained to the patient and an informed consent was obtained both verbally and written. Directly prior to the start of the procedure a formal time-out was completed in the procedure room. The largest pocket of fluid was localized in the left flank using ultrasound guidance. The skin was prepped and draped in a sterile fashion. Eleven ML of buffered lidocaine was used as a local anesthetic. An 8-Russian multi side-hole catheter was inserted using trocar technique. FINDINGS: 5500 mL of chylous ascites was removed and discarded. The patient tolerated the procedure well and there were no immediate complications. After the appropriate amount of monitored convalescence, the patient was discharged from the department. IMPRESSION: Ultrasound-guided paracentesis with removal of 5500 mL of chylous ascites. <Electronically signed by Mariel Medina > 05/09/21 1513 <Electronically signed by Slava Liriano > 05/09/21 1540
== END ==
LOC: M IRPRO 12:36
PROVIDERS: ATTEND Internal Medicine Nephrology
DX: K70.31 Alcoholic cirrhosis of liver with ascites (principal)

== ENCOUNTER → 2021-05-23 | Outpatient (CLI) | payer MEDICARE, OTHER ==
[~2021-05-23] MED LIST changes: -SODIUM BICARBONATE 8.4% INJ 50MEQ 50 ML VIAL As Ordered ONE
[2021-05-23 13:20] VITALS: BP 91/52
--- NOTE | 2021-05-23 14:57 | REP ---
INDICATION: ASCITES. COMPARISON: None. TECHNIQUE: The procedure was performed under the direct supervision of Dr. Liriano. The risks and benefits of the procedure were explained to the patient and informed consent was obtained. The largest pocket of fluid was localized in the left lower quadrant using ultrasound guidance. The skin was prepped and draped in a sterile fashion. 5 mL of 1% lidocaine was used as a local anesthetic. An 8-Guinean multi side-hole catheter was inserted using trocar technique.4400 cc of chylous fluid was withdrawn and discarded. Estimated blood loss: Less than 1 cc The patient tolerated the procedure well and there were no immediate complications. After the appropriate amount of monitored convalescence, the patient was discharged from the department. FINDINGS: None IMPRESSION: Ultrasound-guided paracentesis [id number] cc of chylous fluid. <Electronically signed by Richy Baez > 05/23/21 1433 <Electronically signed by Slava Liriano > 05/23/21 1003
== END ==
LOC: M IRPRO 12:30
PROVIDERS: ATTEND Internal Medicine Nephrology
DX: K70.31 Alcoholic cirrhosis of liver with ascites (principal)

== ENCOUNTER → 2021-06-06 | Outpatient (CLI) | payer MEDICARE, OTHER ==
[~2021-06-06] MED LIST changes: +MIDODRINE 5 MG TAB PO ONE
[2021-06-06 17:25] VITALS: BP 86/49
--- NOTE | 2021-06-06 19:35 | REP ---
INDICATION: ASCITES. COMPARISON: None. TECHNIQUE: The procedure was performed under the direct supervision of Dr. Liriano. The risks and benefits of the procedure were explained to the patient and informed consent was obtained. The largest pocket of fluid was localized in the right flank using ultrasound guidance. The skin was prepped and draped in a sterile fashion. 3 mL of 1% lidocaine was used as a local anesthetic. An 8-Greenlandic multi side-hole catheter was inserted using trocar technique.4500 mL of chylous fluid was withdrawn and discarded. Estimated blood loss: Less than 1 mL The patient tolerated the procedure well and there were no immediate complications. After the appropriate amount of monitored convalescence, the patient was discharged from the department. FINDINGS: None IMPRESSION: Ultrasound-guided paracentesis [id number] mL of chylous fluid. <Electronically signed by Richy Baez > 06/06/21 1826 <Electronically signed by Slava Liriano > 06/06/21 1931
== END ==
LOC: M IRPRO 12:39
PROVIDERS: ATTEND Internal Medicine Nephrology
DX: K70.31 Alcoholic cirrhosis of liver with ascites (principal)
CPT/HCPCS: 49083; 96374; P9047

== ENCOUNTER → 2021-06-10 | Outpatient (REF) | payer MEDICARE, OTHER ==
[~2021-06-10] MED LIST changes: +DOK1CAP4 PO; -DOK1CAP7 PO; -MAGN400T3 PO; +MAGN400T33 PO; -MIDODRINE 5 MG TAB PO ONE
== END ==
LOC: M LAB REF 16:35
PROVIDERS: ATTEND Internal Medicine Nephrology
DX: N18.4 Chronic kidney disease, stage 4 (severe) (principal); R73.9 Hyperglycemia, unspecified; D64.9 Anemia, unspecified

== ENCOUNTER → 2021-06-25 | Outpatient (CLI) | payer MEDICARE, OTHER ==
[~2021-06-25] MED LIST changes: +MAGN400T3 PO; -MAGN400T33 PO
[2021-06-25 15:10] VITALS: BP 114/59
--- NOTE | 2021-06-25 16:41 | REP ---
INDICATION: ASCITES. COMPARISON: None. TECHNIQUE: The procedure was performed under the direct supervision of Dr. Corral. The risks and benefits of the procedure were explained to the patient and informed consent was obtained. The largest pocket of fluid was localized in the left lower quadrant using ultrasound guidance. The skin was prepped and draped in a sterile fashion. 5 mL of 1% lidocaine was used as a local anesthetic. An 8-Kinyarwanda multi side-hole catheter was inserted using trocar technique.2800 mL of chylous fluid was withdrawn and discarded. Estimated blood loss: Less than 1 mL The patient tolerated the procedure well and there were no immediate complications. After the appropriate amount of monitored convalescence, the patient was discharged from the department. FINDINGS: None IMPRESSION: Ultrasound-guided paracentesis [id number] mL of chylous fluid. <Electronically signed by Richy Baez > 06/25/21 1518 <Electronically signed by Edmar Corral > 06/25/21 [id number]
== END ==
LOC: M IRPRO 14:30
PROVIDERS: ATTEND Internal Medicine Nephrology
DX: K70.31 Alcoholic cirrhosis of liver with ascites (principal)

== ENCOUNTER → 2021-07-17 | Outpatient (CLI) | payer MEDICARE, OTHER ==
[~2021-07-17] MED LIST changes: +SODIUM BICARBONATE 8.4% INJ 50MEQ 50 ML VIAL As Ordered ONE
[2021-07-17 13:29] VITALS: BP 114/56
--- NOTE | 2021-07-17 18:21 | REP ---
INDICATION: ASCITES The patient has a history of ascites COMPARISON: None. TECHNIQUE: The procedure was performed by DAVID Padilla, under the direct supervision of Dr. Corral The risks and benefits of the procedure were explained to the patient and an informed consent was obtained both verbally and written. Directly prior to the start of the procedure a formal time-out was completed in the procedure room. The largest pocket of fluid was localized in the left flank using ultrasound guidance. The skin was prepped and draped in a sterile fashion. Eleven 7 ML of buffered lidocaine was used as a local anesthetic. An 8-Azeri multi side-hole catheter was inserted using trocar technique. 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 The patient tolerated the procedure well and there were no immediate complications. After the appropriate amount of monitored convalescence, the patient was discharged from the department. 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 <Electronically signed by Mariel Medina > 07/17/21 1717 <Electronically signed by Edmar Corral > 07/17/21 1817
== END ==
LOC: M IRPRO 12:16
PROVIDERS: ATTEND Internal Medicine Nephrology
DX: K70.31 Alcoholic cirrhosis of liver with ascites (principal)